=== PATIENT | male | born 1960 | race Caucasian/White ===

== ENCOUNTER 2018-10-06 14:36 | Inpatient (IN) | payer OTHER, MEDICAID ==
[~2018-10-06] VITALS: Ht 190.5 cm; Wt 74.4 kg
--- NOTE | 2018-10-06 15:04 | NUR ---
pt reynaldo hare from [facility]. pt dx with etoh w/ds, frequent falls, hypokalemia, hyponatremia, pancreatitis, pt a&ox4. pt very weak and shaking. pt stated he has not had a drink in 8 days. assessment completed. md at bedside. call light in reach. 2 side rails up.
[2018-10-06] MEDS ORDERED: SODIUM CHLORIDE 0.9% 1,000 ML IV ONE (15:13)
[2018-10-06] MEDS ORDERED: LORazepam 2 MG/ML, 1ML ONE (15:23)
[2018-10-06] MEDS ORDERED: SODIUM CHLORIDE FLUSH 10ML SYR IVF ONE (15:30)
[2018-10-06] MEDS ORDERED: MAGNESIUM SULFATE PMX 2GM/50ML 50 ML IV ONE (15:30)
[2018-10-06] MEDS ORDERED: LORazepam 2 MG/ML, 1ML IVPush ONE (15:30)
[2018-10-06] MEDS ORDERED: ONDANSETRON 2MG/ML, 2ML IV PRN (16:00)
[2018-10-06] MEDS ORDERED: LORazepam 2 MG/ML, 1ML IV PRN ×2 (16:00)
[2018-10-06] MEDS ORDERED: DOCUSATE 100 MG CAPSULE PO PRN (16:00)
[2018-10-06] MEDS ORDERED: CYCLOBENZAPRINE 10 MG TABLET PO PRN (16:00)
[2018-10-06] MEDS ORDERED: ALUMINUM/MAG/SIMETHICONE 30 ML UDC PO PRN (16:00)
[2018-10-06] MEDS ORDERED: ACETAMINOPHEN 325 MG TABLET PO PRN (16:00)
[2018-10-06] MEDS ORDERED: GABAPENTIN 300 MG CAPSULE PO PRN (16:00)
[2018-10-06] MEDS ORDERED: DIPHENHYDRAMINE 50 MG CAPSULE PO PRN (16:00)
[2018-10-06] MEDS ORDERED: THIAMINE 200 MG in DEXTROSE 5% 50 ML IVPB ONE (16:00)
[2018-10-06] MEDS ORDERED: OMEP-110 PO (16:08)
[2018-10-06] MEDS ORDERED: AMLO-150 PO (16:09)
[2018-10-06] MEDS ORDERED: METO25TA35 PO (16:09)
[2018-10-06] MEDS ORDERED: LORA-446 PO (16:10)
[2018-10-06] MEDS ORDERED: MULT-204 PO (16:10)
--- NOTE | 2018-10-06 16:12 | NUR ---
report called to monico carter.pt will be transferrd to floor.
[2018-10-06 16:40] LABS: BASOPHILS # (AUTO) 0.04 x10^3/uL (0-0.1); BASOPHILS % (AUTO) 0 % (0-1); EOSINOPHILS # (AUTO) 0.01 x10^3/uL (0-0.4); EOSINOPHILS % (AUTO) 0 % (1-7); LYMPHOCYTES # (AUTO) 1.05 x10^3/uL (1-3.4); LYMPHOCYTES % (AUTO) 10 % (22-44); MD NO; MEAN CORPUSCULAR HEMOGLOBIN 32.9 pg (27.5-34.5); MEAN CORPUSCULAR HGB CONC 32.8 g/dL (33.2-36.2); MEAN CORPUSCULAR VOLUME 100.3 fL (81-97); MEAN PLATELET VOLUME 7.8 fL (7.4-10.4); MONOCYTES # (AUTO) 0.79 x10^3/uL (0.2-0.8); MONOCYTES % (AUTO) 7 % (2-9); NEUTROPHILS # (AUTO) 8.84 x10^3/uL (1.8-6.8); NEUTROPHILS % (AUTO) 82 % (42-75); PLATELET COUNT 316 x10^3/uL (130-400); RED BLOOD COUNT 3.77 x10^6/uL (4.38-5.82); RED CELL DISTRIBUTION WIDTH 16.3 % (9.4-14.8)
[2018-10-06 16:46] VITALS: BP 119/79
[2018-10-06 16:54] LABS: ALANINE AMINOTRANSFERASE 60 U/L (12-78); ALBUMIN 2.2 g/dL (3.4-5.0); ANION GAP 12 mmol/L (5-15); CALCIUM 7.6 mg/dL (8.5-10.1); CHLORIDE 97 mmol/L (98-107); CREATININE 0.71 mg/dL (0.7-1.3)
[2018-10-06 16:56] LABS: ALKALINE PHOSPHATASE 232 U/L (45-117); BILIRUBIN,TOTAL 5.7 mg/dL (0.2-1.0); TOTAL PROTEIN 5.6 g/dL (6.4-8.2)
[2018-10-06] MEDS ORDERED: METOCLOPRAMIDE 10MG TABLET PO PRN (18:00)
[2018-10-06] MEDS: POTASSIUM CHLORIDE 20 MEQ, MVI ADULT 10 ML, FOLIC ACID 1 MG, MAGNESIUM SULFATE 1 GM in ... IV SCH (18:05)
[2018-10-06] MEDS: PIPERACILLIN/TAZO/PMX 4.5GM 100 ML IV SCH (18:05)
[2018-10-06] MEDS: LORazepam 2 MG/ML, 1ML IV PRN (19:15)
[2018-10-06 20:00] VITALS: BP 116/77
[2018-10-06] MEDS: ENOXAPARIN 40 MG/0.4 ML SQ SCH (21:00)
[2018-10-07] MEDS: PIPERACILLIN/TAZO/PMX 4.5GM 100 ML IV SCH ×3 (00:47→16:21)
[2018-10-07] MEDS: LORazepam 2 MG/ML, 1ML IV PRN ×8 (01:14→22:01)
[2018-10-07 01:21] VITALS: BP 123/82
[2018-10-07] MEDS: POTASSIUM CHLORIDE 20 MEQ, MVI ADULT 10 ML, FOLIC ACID 1 MG, MAGNESIUM SULFATE 1 GM in ... IV SCH ×2 (03:16→17:55)
[2018-10-07 07:04] LABS: ALANINE AMINOTRANSFERASE 54 U/L (12-78); ANION GAP 10 mmol/L (5-15); CHLORIDE 102 mmol/L (98-107); CREATININE 0.66 mg/dL (0.7-1.3)
[2018-10-07 07:09] LABS: ALKALINE PHOSPHATASE 206 U/L (45-117); BILIRUBIN,TOTAL 5.2 mg/dL (0.2-1.0); CALCIUM 7.6 mg/dL (8.5-10.1); TOTAL PROTEIN 5.3 g/dL (6.4-8.2)
[2018-10-07 07:34] LABS: INTERNATIONAL NORMALIZED RATIO 1.62 (0.93-1.1); PROTHROMBIN TIME 16.7 Seconds (9.6-11.5)
[2018-10-07] MEDS ORDERED: LIDOCAINE-MPF 1%, 5ML ONE (07:54)
[2018-10-07 08:33] VITALS: BP 127/78
[2018-10-07] MEDS ORDERED: POTASSIUM PHOSPHATE 44 MEQ in SODIUM CHLORIDE 0.9% 500 ML IV ONE (09:00)
[2018-10-07] MEDS ORDERED: POTASSIUM CHLORIDE 20 MEQ TAB.ER.PRT PO ONE (09:00)
[2018-10-07] MEDS: MULTIVITAMINS/MINERALS TABLET PO SCH (09:04)
[2018-10-07 14:28] VITALS: BP 129/82
[2018-10-07 15:21] LABS: CLOSTRIDIUM DIFFICILE ANTIGEN POSITIVE; CLOSTRIDIUM DIFFICILE TOXIN NEGATIVE (Negative)
[2018-10-07] MEDS: ENOXAPARIN 40 MG/0.4 ML SQ SCH (17:43)
[2018-10-07 19:47] VITALS: BP 115/78
[2018-10-08] MEDS: PIPERACILLIN/TAZO/PMX 4.5GM 100 ML IV SCH ×3 (00:43→17:32)
[2018-10-08] MEDS: LORazepam 2 MG/ML, 1ML IV PRN ×6 (01:13→13:10)
[2018-10-08] MEDS: POTASSIUM CHLORIDE 20 MEQ, MVI ADULT 10 ML, FOLIC ACID 1 MG, MAGNESIUM SULFATE 1 GM in ... IV SCH ×2 (01:35→14:17)
[2018-10-08 02:14] VITALS: BP 131/90
[2018-10-08 07:11] VITALS: BP 104/60
[2018-10-08 07:27] LABS: BASOPHILS # (AUTO) 0.05 x10^3/uL (0-0.1); BASOPHILS % (AUTO) 1 % (0-1); EOSINOPHILS # (AUTO) 0.09 x10^3/uL (0-0.4); EOSINOPHILS % (AUTO) 1 % (1-7); LYMPHOCYTES # (AUTO) 1.09 x10^3/uL (1-3.4); LYMPHOCYTES % (AUTO) 12 % (22-44); MD NO; MEAN CORPUSCULAR HEMOGLOBIN 33.4 pg (27.5-34.5); MEAN CORPUSCULAR HGB CONC 32.8 g/dL (33.2-36.2); MEAN CORPUSCULAR VOLUME 101.8 fL (81-97); MEAN PLATELET VOLUME 7.7 fL (7.4-10.4); MONOCYTES # (AUTO) 0.67 x10^3/uL (0.2-0.8); MONOCYTES % (AUTO) 8 % (2-9); NEUTROPHILS # (AUTO) 7.02 x10^3/uL (1.8-6.8); NEUTROPHILS % (AUTO) 79 % (42-75); PLATELET COUNT 277 x10^3/uL (130-400); RED BLOOD COUNT 3.56 x10^6/uL (4.38-5.82); RED CELL DISTRIBUTION WIDTH 16.1 % (9.4-14.8)
[2018-10-08 07:46] LABS: ANION GAP 8 mmol/L (5-15); CALCIUM 7.6 mg/dL (8.5-10.1); CHLORIDE 110 mmol/L (98-107)
[2018-10-08 07:49] LABS: ALANINE AMINOTRANSFERASE 56 U/L (12-78); ALKALINE PHOSPHATASE 201 U/L (45-117); BILIRUBIN,TOTAL 4.2 mg/dL (0.2-1.0); CREATININE 0.48 mg/dL (0.7-1.3); TOTAL PROTEIN 5.1 g/dL (6.4-8.2)
[2018-10-08 07:59] LABS: INTERNATIONAL NORMALIZED RATIO 1.34 (0.93-1.1); PROTHROMBIN TIME 13.9 Seconds (9.6-11.5)
[2018-10-08] MEDS: LACTULOSE 20 GM/30 ML UDC PO SCH ×2 (09:00→21:32)
[2018-10-08] MEDS: MULTIVITAMINS/MINERALS TABLET PO SCH (09:00)
[2018-10-08] MEDS ORDERED: THIAMINE 100 MG in DEXTROSE 5% 50 ML IVPB SCH (09:00)
[2018-10-08] MEDS: NEUTRA PHOS K 250 MG TABLET PO SCH ×3 (09:00→21:32)
[2018-10-08] MEDS ORDERED: PHARMACY INSTRUCTION MC PRN ×4 (14:30)
[2018-10-08] MEDS ORDERED: PHENOBARBITAL SODIUM IVPB ONE (15:00)
[2018-10-08] MEDS ORDERED: SODIUM CHLORIDE 0.9% IVPB ONE (15:00)
[2018-10-08 17:29] LABS: MICROSCOPIC INDICATED
[2018-10-08] MEDS ORDERED: SODIUM CHLORIDE 0.9% 1,000ML IVBOLUS ONE (17:30)
[2018-10-08 17:35] LABS: CULTURE INDICATED? YES
[2018-10-08] MEDS: VANCOMYCIN 50 MG/ML ORAL SUSP NG SCH (19:56)
[2018-10-08] MEDS: METRONIDAZOLE PMX 500MG/100ML 100 ML IV SCH (19:58)
[2018-10-08] MEDS: SODIUM CHLORIDE 0.9% 1,000 ML IV SCH (20:07)
[2018-10-08] MEDS: ENOXAPARIN 40 MG/0.4 ML SQ SCH (21:33)
[2018-10-09] MEDS: VANCOMYCIN 50 MG/ML ORAL SUSP NG SCH ×4 (01:49→21:02)
[2018-10-09] MEDS: METRONIDAZOLE PMX 500MG/100ML 100 ML IV SCH (03:26)
[2018-10-09] MEDS: SODIUM CHLORIDE 0.9% 1,000 ML IV SCH (03:26)
[2018-10-09 04:03] LABS: BASOPHILS # (AUTO) 0.02 x10^3/uL (0-0.1); BASOPHILS % (AUTO) 0 % (0-1); EOSINOPHILS # (AUTO) 0.08 x10^3/uL (0-0.4); EOSINOPHILS % (AUTO) 1 % (1-7); LYMPHOCYTES # (AUTO) 0.91 x10^3/uL (1-3.4); LYMPHOCYTES % (AUTO) 10 % (22-44); MD NO; MEAN CORPUSCULAR HEMOGLOBIN 33.8 pg (27.5-34.5); MEAN CORPUSCULAR HGB CONC 32.9 g/dL (33.2-36.2); MEAN CORPUSCULAR VOLUME 102.8 fL (81-97); MEAN PLATELET VOLUME 7.7 fL (7.4-10.4); MONOCYTES % (AUTO) 5 % (2-9); NEUTROPHILS # (AUTO) 7.75 x10^3/uL (1.8-6.8); NEUTROPHILS % (AUTO) 84 % (42-75); PLATELET COUNT 259 x10^3/uL (130-400); RED BLOOD COUNT 3.71 x10^6/uL (4.38-5.82); RED CELL DISTRIBUTION WIDTH 16.8 % (9.4-14.8)
[2018-10-09 04:16] LABS: ALANINE AMINOTRANSFERASE 54 U/L (12-78); ALBUMIN 1.9 g/dL (3.4-5.0); ANION GAP 10 mmol/L (5-15); CALCIUM 7.6 mg/dL (8.5-10.1); CHLORIDE 115 mmol/L (98-107); CHOLESTEROL, TOTAL 55 mg/dL (140-239); CREATININE 0.43 mg/dL (0.7-1.3)
[2018-10-09 04:24] LABS: ALKALINE PHOSPHATASE 196 U/L (45-117); CHOL/HDL RATIO 4.2; HDL CHOL % 24 % (26-37); HDL CHOLESTEROL (DIRECT) 13 mg/dL (40-60); LDL CHOLESTEROL,CALCULATED 30 mg/dL (54-169); LDL/HDL RATIO 2.3 (0.5-3.0); TOTAL PROTEIN 5.1 g/dL (6.4-8.2); TRIGLYCERIDES 59 mg/dL (50-200); VLDL CHOLESTEROL 12 mg/dL (0-25)
[2018-10-09] MEDS: PHENOBARBITAL SODIUM 65 MG/ML, 1ML IM SCH ×2 (07:27→18:42)
[2018-10-09] MEDS: NEUTRA PHOS K 250 MG TABLET PO SCH ×2 (09:01→14:53)
[2018-10-09] MEDS: RIFAXIMIN 550 MG TABLET PO SCH ×2 (09:01→20:52)
[2018-10-09] MEDS: THIAMINE 200 MG in DEXTROSE 5% 50 ML IVPB SCH (09:01)
[2018-10-09] MEDS: SODIUM CHLORIDE 0.45% 1,000 ML IV SCH ×2 (09:02→20:47)
[2018-10-09] MEDS ORDERED: PHENOBARBITAL SODIUM 260 MG in SODIUM CHLORIDE 0.9% 50 ML IVPB ONE (13:00)
[2018-10-09] MEDS ORDERED: ZIPRASIDONE 20 MG INJ IM ONE (15:00)
[2018-10-09] MEDS: ENOXAPARIN 40 MG/0.4 ML SQ SCH (20:53)
[2018-10-10] MEDS: VANCOMYCIN 50 MG/ML ORAL SUSP NG SCH ×4 (03:25→21:27)
[2018-10-10 04:00] VITALS: BP 134/92
[2018-10-10 04:33] LABS: BASOPHILS # (AUTO) 0.03 x10^3/uL (0-0.1); BASOPHILS % (AUTO) 0 % (0-1); EOSINOPHILS # (AUTO) 0.36 x10^3/uL (0-0.4); EOSINOPHILS % (AUTO) 3 % (1-7); LYMPHOCYTES # (AUTO) 1.49 x10^3/uL (1-3.4); LYMPHOCYTES % (AUTO) 12 % (22-44); MD NO; MEAN CORPUSCULAR HEMOGLOBIN 33.7 pg (27.5-34.5); MEAN CORPUSCULAR HGB CONC 32.5 g/dL (33.2-36.2); MEAN CORPUSCULAR VOLUME 103.7 fL (81-97); MEAN PLATELET VOLUME 7.7 fL (7.4-10.4); MONOCYTES # (AUTO) 0.84 x10^3/uL (0.2-0.8); MONOCYTES % (AUTO) 7 % (2-9); NEUTROPHILS # (AUTO) 10.03 x10^3/uL (1.8-6.8); NEUTROPHILS % (AUTO) 79 % (42-75); PLATELET COUNT 272 x10^3/uL (130-400); RED BLOOD COUNT 3.75 x10^6/uL (4.38-5.82); RED CELL DISTRIBUTION WIDTH 17.2 % (9.4-14.8)
[2018-10-10 04:43] LABS: ALBUMIN 1.9 g/dL (3.4-5.0); ANION GAP 8 mmol/L (5-15); CALCIUM 8.3 mg/dL (8.5-10.1); CHLORIDE 117 mmol/L (98-107)
[2018-10-10 04:48] LABS: ALANINE AMINOTRANSFERASE 54 U/L (12-78); ALKALINE PHOSPHATASE 211 U/L (45-117); BILIRUBIN,TOTAL 2.7 mg/dL (0.2-1.0); CREATININE 0.64 mg/dL (0.7-1.3); TOTAL PROTEIN 5.4 g/dL (6.4-8.2)
[2018-10-10] MEDS: PHENOBARBITAL SODIUM 65 MG/ML, 1ML IM SCH (05:53)
[2018-10-10] MEDS ORDERED: POTASSIUM PHOSPHATE 44 MEQ in SODIUM CHLORIDE 0.9% 500 ML IV ONE (07:00)
[2018-10-10] MEDS ORDERED: ROCURONIUM 10MG/ML,5ML ONE (07:37)
[2018-10-10] MEDS ORDERED: ETOMIDATE 20 MG/10 ML ONE (07:37)
[2018-10-10] MEDS ORDERED: PROPOFOL 10 MG/ML, 100ML IV ONE (07:37)
[2018-10-10] MEDS: THIAMINE 200 MG in DEXTROSE 5% 50 ML IVPB SCH (09:19)
[2018-10-10] MEDS: RIFAXIMIN 550 MG TABLET PO SCH ×2 (09:19→21:27)
[2018-10-10] MEDS: SODIUM CHLORIDE 0.45% 1,000 ML IV SCH ×2 (09:20→23:43)
[2018-10-10] MEDS ORDERED: NOREPINEPHRINE 4 MG in SODIUM CHLORIDE 0.9% 246 ML IV PRN (16:32)
[2018-10-10] MEDS ORDERED: DEXTROSE 50%, 50ML SYRINGE IVPush PRN (17:00)
[2018-10-10] MEDS ORDERED: BISACODYL 10 MG SUPP PR PRN (17:00)
[2018-10-10] MEDS ORDERED: DEXTROSE 4 GM TAB.CHEW PO PRN (17:00)
[2018-10-10] MEDS ORDERED: SENNA 176 MG/5 ML ORAL SOL NG PRN (17:00)
[2018-10-10] MEDS ORDERED: LACTULOSE 20 GM/30 ML UDC NG PRN (17:00)
[2018-10-10] MEDS ORDERED: SENNA/DOCUSATE TABLET NG PRN (17:00)
[2018-10-10] MEDS ORDERED: PIPERACILLIN/TAZO/PMX 3.375GM 50 ML IV SCH (17:00)
[2018-10-10] MEDS ORDERED: PHARMACY MAY ADJ FOR RENAL FX MC SCH (17:00)
[2018-10-10] MEDS ORDERED: LIDOCAINE-MPF 1%, 2ML ENDO PRN (17:00)
[2018-10-10] MEDS ORDERED: GLUCAGON 1 MG IM PRN (17:00)
[2018-10-10 18:00] LABS: INTERNATIONAL NORMALIZED RATIO 1.29 (0.93-1.1); PROTHROMBIN TIME 13.4 Seconds (9.6-11.5)
[2018-10-10] MEDS: ALBUTEROL/IPRATROPIUM 2.5MG/0.5MG, 3 ML INLINE SCH ×3 (18:00→22:31)
[2018-10-10 18:06] LABS: ANION GAP 8 mmol/L (5-15); CALCIUM 8.4 mg/dL (8.5-10.1); CHLORIDE 118 mmol/L (98-107); CREATININE 0.58 mg/dL (0.7-1.3); TRIGLYCERIDES 74 mg/dL (50-200); TROPONIN I < 0.015 ng/mL (0.000-0.045)
[2018-10-10 18:17] LABS: MEAN CORPUSCULAR HEMOGLOBIN 33.9 pg (27.5-34.5); MEAN CORPUSCULAR HGB CONC 32.4 g/dL (33.2-36.2); MEAN CORPUSCULAR VOLUME 104.5 fL (81-97); PLATELET COUNT 322 x10^3/uL (130-400); RED BLOOD COUNT 4.14 x10^6/uL (4.38-5.82); RED CELL DISTRIBUTION WIDTH 17.3 % (9.4-14.8)
[2018-10-10] MEDS ORDERED: FENTANYL PF 2,500 MCG in SODIUM CHLORIDE 0.9% 200 ML IV PRN (18:30)
[2018-10-10] MEDS: MEROPENEM 1 GM in SODIUM CHLORIDE 0.9% 100 ML IV SCH (18:34)
[2018-10-10] MEDS ORDERED: DIAZEPAM 5 MG/ML, 2ML IV ONE (21:00)
[2018-10-10] MEDS: INSULIN LISPRO 100 UNITS/ML, PEN SQ-INSULIN SCH (21:00)
[2018-10-10] MEDS: ENOXAPARIN 40 MG/0.4 ML SQ SCH (21:27)
[2018-10-10] MEDS: SODIUM CHLORIDE FLUSH 10ML SYR IVF SCH (21:28)
[2018-10-10] MEDS: PROPOFOL 100 ML IV PRN (21:32)
[2018-10-10 23:00] LABS: MEAN CORPUSCULAR HEMOGLOBIN 33.5 pg (27.5-34.5); MEAN CORPUSCULAR HGB CONC 32.6 g/dL (33.2-36.2); MEAN CORPUSCULAR VOLUME 102.6 fL (81-97); MEAN PLATELET VOLUME 7.9 fL (7.4-10.4); PLATELET COUNT 310 x10^3/uL (130-400); RED BLOOD COUNT 4.14 x10^6/uL (4.38-5.82); RED CELL DISTRIBUTION WIDTH 17.4 % (9.4-14.8)
[2018-10-10] MEDS: FENTANYL PF 100 MCG/2ML IVPush PRN ×2 (23:15→23:43)
[2018-10-10 23:17] LABS: TROPONIN I < 0.015 ng/mL (0.000-0.045)
[2018-10-11] MEDS ORDERED: ALBUMIN HUMAN 25% 100 ML IV ONE (01:00)
[2018-10-11] MEDS ORDERED: ALBUMIN HUMAN 25% 50 ML IV ONE (01:30)
[2018-10-11] MEDS: ALBUTEROL/IPRATROPIUM 2.5MG/0.5MG, 3 ML INLINE SCH ×6 (02:21→22:17)
[2018-10-11] MEDS: VANCOMYCIN 50 MG/ML ORAL SUSP NG SCH ×4 (03:16→21:37)
[2018-10-11 04:40] LABS: MEAN CORPUSCULAR HEMOGLOBIN 33.9 pg (27.5-34.5); MEAN CORPUSCULAR HGB CONC 32.6 g/dL (33.2-36.2); MEAN CORPUSCULAR VOLUME 103.8 fL (81-97); MEAN PLATELET VOLUME 8.2 fL (7.4-10.4); PLATELET COUNT 236 x10^3/uL (130-400); RED BLOOD COUNT 3.64 x10^6/uL (4.38-5.82); RED CELL DISTRIBUTION WIDTH 17.4 % (9.4-14.8)
[2018-10-11 04:49] LABS: ALANINE AMINOTRANSFERASE 47 U/L (12-78); ANION GAP 8 mmol/L (5-15); CHLORIDE 117 mmol/L (98-107)
[2018-10-11 04:51] LABS: ALKALINE PHOSPHATASE 170 U/L (45-117); BILIRUBIN,TOTAL 2.6 mg/dL (0.2-1.0); CREATININE 0.99 mg/dL (0.7-1.3); TOTAL PROTEIN 5.1 g/dL (6.4-8.2)
[2018-10-11 05:00] VITALS: BP 93/66
[2018-10-11] MEDS: PROPOFOL 100 ML IV PRN ×4 (05:04→23:29)
[2018-10-11 05:44] LABS: BASOPHILS # (AUTO) 0.02 x10^3/uL (0-0.1); BASOPHILS % (AUTO) 0 % (0-1); EOSINOPHILS # (AUTO) 0.05 x10^3/uL (0-0.4); EOSINOPHILS % (AUTO) 0 % (1-7); LYMPHOCYTES # (AUTO) 1.78 x10^3/uL (1-3.4); LYMPHOCYTES % (AUTO) 10 % (22-44); MD SCAN; MONOCYTES # (AUTO) 0.88 x10^3/uL (0.2-0.8); MONOCYTES % (AUTO) 5 % (2-9); NEUTROPHILS # (AUTO) 14.67 x10^3/uL (1.8-6.8); NEUTROPHILS % (AUTO) 84 % (42-75)
[2018-10-11] MEDS ORDERED: PHENOBARBITAL SODIUM 65 MG/ML, 1ML IM SCH (06:30)
[2018-10-11] MEDS: MEROPENEM 1 GM in SODIUM CHLORIDE 0.9% 100 ML IV SCH (06:33)
[2018-10-11] MEDS ORDERED: MAGNESIUM SULFATE PMX 2GM/50ML 50 ML IV ONE (07:00)
[2018-10-11] MEDS: INSULIN LISPRO 100 UNITS/ML, PEN SQ-INSULIN SCH ×4 (07:00→21:38)
[2018-10-11] MEDS ORDERED: SODIUM CHLORIDE 0.9%, 500ML IVBOLUS ONE ×2 (07:30→14:30)
[2018-10-11] MEDS: THIAMINE 200 MG in DEXTROSE 5% 50 ML IVPB SCH ×2 (09:00→09:18)
[2018-10-11] MEDS: RIFAXIMIN 550 MG TABLET PO SCH ×2 (09:17→21:38)
[2018-10-11] MEDS: SODIUM CHLORIDE FLUSH 10ML SYR IVF SCH ×2 (09:20→21:37)
[2018-10-11 10:27] LABS: MEAN CORPUSCULAR HEMOGLOBIN 34.1 pg (27.5-34.5); MEAN CORPUSCULAR HGB CONC 32.9 g/dL (33.2-36.2); MEAN CORPUSCULAR VOLUME 103.4 fL (81-97); MEAN PLATELET VOLUME 8.1 fL (7.4-10.4); PLATELET COUNT 254 x10^3/uL (130-400); RED BLOOD COUNT 3.58 x10^6/uL (4.38-5.82); RED CELL DISTRIBUTION WIDTH 17.1 % (9.4-14.8)
[2018-10-11] MEDS: PIPERACILLIN/TAZO/PMX 3.375GM 50 ML IV SCH ×3 (11:46→21:38)
[2018-10-11] MEDS: SODIUM CHLORIDE 0.45% 1,000 ML IV SCH (15:50)
[2018-10-11] MEDS: ENOXAPARIN 40 MG/0.4 ML SQ SCH (21:38)
[2018-10-11 22:24] LABS: MEAN CORPUSCULAR HEMOGLOBIN 33.6 pg (27.5-34.5); MEAN CORPUSCULAR HGB CONC 32.3 g/dL (33.2-36.2); MEAN CORPUSCULAR VOLUME 104.1 fL (81-97); MEAN PLATELET VOLUME 8.1 fL (7.4-10.4); PLATELET COUNT 212 x10^3/uL (130-400); RED BLOOD COUNT 3.44 x10^6/uL (4.38-5.82); RED CELL DISTRIBUTION WIDTH 17.5 % (9.4-14.8)
[2018-10-12] MEDS: ALBUTEROL/IPRATROPIUM 2.5MG/0.5MG, 3 ML INLINE SCH ×6 (02:19→22:53)
[2018-10-12] MEDS: PIPERACILLIN/TAZO/PMX 3.375GM 50 ML IV SCH ×4 (03:36→21:33)
[2018-10-12] MEDS: VANCOMYCIN 50 MG/ML ORAL SUSP NG SCH ×4 (03:36→21:00)
[2018-10-12] MEDS: INSULIN LISPRO 100 UNITS/ML, PEN SQ-INSULIN SCH ×3 (04:00→18:00)
[2018-10-12 04:31] LABS: MEAN CORPUSCULAR HEMOGLOBIN 33.6 pg (27.5-34.5); MEAN CORPUSCULAR HGB CONC 32.4 g/dL (33.2-36.2); MEAN CORPUSCULAR VOLUME 103.8 fL (81-97); MEAN PLATELET VOLUME 8.6 fL (7.4-10.4); PLATELET COUNT 197 x10^3/uL (130-400); RED BLOOD COUNT 3.33 x10^6/uL (4.38-5.82); RED CELL DISTRIBUTION WIDTH 16.9 % (9.4-14.8)
[2018-10-12 04:37] LABS: ANION GAP 7 mmol/L (5-15); CALCIUM 7.8 mg/dL (8.5-10.1); CHLORIDE 116 mmol/L (98-107); CREATININE 0.99 mg/dL (0.7-1.3)
[2018-10-12 05:03] VITALS: BP 99/66
[2018-10-12] MEDS: SODIUM CHLORIDE 0.45% 1,000 ML IV SCH ×2 (05:37→15:30)
[2018-10-12 05:43] LABS: BASOPHILS # (AUTO) 0.18 x10^3/uL (0-0.1); BASOPHILS % (AUTO) 1 % (0-1); EOSINOPHILS # (AUTO) 0.39 x10^3/uL (0-0.4); EOSINOPHILS % (AUTO) 3 % (1-7); LYMPHOCYTES # (AUTO) 1.67 x10^3/uL (1-3.4); LYMPHOCYTES % (AUTO) 11 % (22-44); MD SCAN; MONOCYTES # (AUTO) 1.21 x10^3/uL (0.2-0.8); MONOCYTES % (AUTO) 8 % (2-9); NEUTROPHILS # (AUTO) 11.38 x10^3/uL (1.8-6.8); NEUTROPHILS % (AUTO) 77 % (42-75)
[2018-10-12] MEDS: RIFAXIMIN 550 MG TABLET PO SCH ×2 (08:56→21:00)
[2018-10-12] MEDS: THIAMINE 200 MG in DEXTROSE 5% 50 ML IVPB SCH (08:56)
--- NOTE | 2018-10-12 10:38 | NUR ---
10/12 TF GOAL: VITAL AF 1.2 @ 80ML/HR via postpyloric dobhoff
[2018-10-12] MEDS: SODIUM CHLORIDE FLUSH 10ML SYR IVF SCH ×2 (11:46→21:00)
[2018-10-12] MEDS: METOCLOPRAMIDE 5 MG/ML, 2ML IVPush SCH ×2 (12:00→18:52)
[2018-10-12] MEDS: ENOXAPARIN 40 MG/0.4 ML SQ SCH (21:33)
[2018-10-13] MEDS: ALBUTEROL/IPRATROPIUM 2.5MG/0.5MG, 3 ML INLINE SCH ×3 (02:25→11:00)
[2018-10-13] MEDS: PIPERACILLIN/TAZO/PMX 3.375GM 50 ML IV SCH ×4 (03:38→20:49)
[2018-10-13] MEDS: VANCOMYCIN 50 MG/ML ORAL SUSP NG SCH ×4 (03:58→19:59)
[2018-10-13] MEDS: SODIUM CHLORIDE 0.45% 1,000 ML IV SCH ×2 (03:59→17:16)
[2018-10-13 04:00] VITALS: BP 108/72
[2018-10-13 05:06] LABS: ANION GAP 8 mmol/L (5-15); CHLORIDE 113 mmol/L (98-107); TRIGLYCERIDES 93 mg/dL (50-200)
[2018-10-13] MEDS: METOCLOPRAMIDE 5 MG/ML, 2ML IVPush SCH ×5 (05:19→23:48)
[2018-10-13] MEDS: INSULIN LISPRO 100 UNITS/ML, PEN SQ-INSULIN SCH ×5 (05:19→23:48)
[2018-10-13 05:42] LABS: MEAN CORPUSCULAR HEMOGLOBIN 33.1 pg (27.5-34.5); MEAN CORPUSCULAR VOLUME 103.4 fL (81-97); MEAN PLATELET VOLUME 8.5 fL (7.4-10.4); PLATELET COUNT 176 x10^3/uL (130-400); RED BLOOD COUNT 3.32 x10^6/uL (4.38-5.82); RED CELL DISTRIBUTION WIDTH 16.5 % (9.4-14.8)
[2018-10-13 05:43] LABS: BASOPHILS # (AUTO) 0.03 x10^3/uL (0-0.1); BASOPHILS % (AUTO) 0 % (0-1); EOSINOPHILS # (AUTO) 0.18 x10^3/uL (0-0.4); EOSINOPHILS % (AUTO) 2 % (1-7); LYMPHOCYTES # (AUTO) 1.21 x10^3/uL (1-3.4); LYMPHOCYTES % (AUTO) 11 % (22-44); MD SCAN; MONOCYTES # (AUTO) 0.94 x10^3/uL (0.2-0.8); MONOCYTES % (AUTO) 9 % (2-9); NEUTROPHILS # (AUTO) 8.44 x10^3/uL (1.8-6.8); NEUTROPHILS % (AUTO) 78 % (42-75)
[2018-10-13] MEDS ORDERED: PHENOBARBITAL 20 MG/5 ML ORAL SOL PO SCH (06:30)
[2018-10-13] MEDS: FAMOTIDINE 20 MG/2 ML IVPush SCH ×2 (09:12→19:59)
[2018-10-13] MEDS: THIAMINE 200 MG in DEXTROSE 5% 50 ML IVPB SCH (09:12)
[2018-10-13] MEDS: SODIUM CHLORIDE FLUSH 10ML SYR IVF SCH ×2 (09:12→19:59)
[2018-10-13] MEDS: RIFAXIMIN 550 MG TABLET PO SCH ×2 (09:13→19:59)
[2018-10-13] MEDS ORDERED: LIDOCAINE 2%, 6 ML JEL.PF.APP MM ONE (14:35)
[2018-10-13] MEDS: ENOXAPARIN 40 MG/0.4 ML SQ SCH (19:59)
[2018-10-13] MEDS: ALBUTEROL/IPRATROPIUM 2.5MG/0.5MG, 3 ML NPPB SCH (20:24)
[2018-10-14] MEDS: SODIUM CHLORIDE 0.45% 1,000 ML IV SCH ×3 (02:00→14:40)
[2018-10-14] MEDS: VANCOMYCIN 50 MG/ML ORAL SUSP NG SCH ×4 (02:45→20:33)
[2018-10-14] MEDS: PIPERACILLIN/TAZO/PMX 3.375GM 50 ML IV SCH ×4 (03:42→22:08)
[2018-10-14 04:48] LABS: MEAN CORPUSCULAR HEMOGLOBIN 33.8 pg (27.5-34.5); MEAN CORPUSCULAR HGB CONC 32.8 g/dL (33.2-36.2); MEAN CORPUSCULAR VOLUME 103.2 fL (81-97); MEAN PLATELET VOLUME 8.6 fL (7.4-10.4); PLATELET COUNT 237 x10^3/uL (130-400); RED BLOOD COUNT 3.45 x10^6/uL (4.38-5.82); RED CELL DISTRIBUTION WIDTH 15.9 % (9.4-14.8)
[2018-10-14 04:53] LABS: ANION GAP 12 mmol/L (5-15); CHLORIDE 111 mmol/L (98-107); CREATININE 0.53 mg/dL (0.7-1.3)
[2018-10-14 05:41] LABS: BASOPHILS # (AUTO) 0.03 x10^3/uL (0-0.1); BASOPHILS % (AUTO) 0 % (0-1); EOSINOPHILS # (AUTO) 0.05 x10^3/uL (0-0.4); EOSINOPHILS % (AUTO) 1 % (1-7); LYMPHOCYTES # (AUTO) 0.92 x10^3/uL (1-3.4); LYMPHOCYTES % (AUTO) 8 % (22-44); MD SCAN; MONOCYTES # (AUTO) 1.04 x10^3/uL (0.2-0.8); MONOCYTES % (AUTO) 9 % (2-9); NEUTROPHILS # (AUTO) 9.02 x10^3/uL (1.8-6.8); NEUTROPHILS % (AUTO) 82 % (42-75)
[2018-10-14 05:51] VITALS: BP 134/82
[2018-10-14] MEDS: INSULIN LISPRO 100 UNITS/ML, PEN SQ-INSULIN SCH ×2 (06:00→12:00)
[2018-10-14] MEDS: METOCLOPRAMIDE 5 MG/ML, 2ML IVPush SCH ×3 (06:16→18:14)
[2018-10-14] MEDS ORDERED: PHENOBARBITAL 20 MG/5 ML ORAL SOL PO SCH (06:30)
[2018-10-14] MEDS: ALBUTEROL/IPRATROPIUM 2.5MG/0.5MG, 3 ML NPPB SCH (07:02)
[2018-10-14] MEDS ORDERED: ALBUTEROL/IPRATROPIUM 2.5MG/0.5MG, 3 ML NPPB PRN (07:30)
[2018-10-14] MEDS: FAMOTIDINE 20 MG/2 ML IVPush SCH ×2 (08:36→20:33)
[2018-10-14] MEDS: SODIUM CHLORIDE FLUSH 10ML SYR IVF SCH ×2 (08:36→20:33)
[2018-10-14] MEDS: RIFAXIMIN 550 MG TABLET PO SCH ×2 (08:36→20:34)
[2018-10-14] MEDS: THIAMINE 200 MG in DEXTROSE 5% 50 ML IVPB SCH (08:47)
[2018-10-14] MEDS ORDERED: ZIPRASIDONE 20 MG INJ IM ONE ×2 (09:37→16:00)
[2018-10-14] MEDS: ENOXAPARIN 40 MG/0.4 ML SQ SCH (20:34)
[2018-10-14] MEDS ORDERED: QUETIAPINE 25MG TABLET PO SCH ×2 (21:00)
[2018-10-15] MEDS: SODIUM CHLORIDE 0.45% 1,000 ML IV SCH ×3 (00:17→18:28)
[2018-10-15] MEDS: METOCLOPRAMIDE 5 MG/ML, 2ML IVPush SCH ×5 (00:19→21:30)
[2018-10-15] MEDS: VANCOMYCIN 50 MG/ML ORAL SUSP NG SCH ×3 (02:25→18:28)
[2018-10-15] MEDS: PIPERACILLIN/TAZO/PMX 3.375GM 50 ML IV SCH ×4 (03:44→21:55)
[2018-10-15 05:56] LABS: MEAN CORPUSCULAR HEMOGLOBIN 33.5 pg (27.5-34.5); MEAN CORPUSCULAR HGB CONC 32.6 g/dL (33.2-36.2); MEAN PLATELET VOLUME 8.9 fL (7.4-10.4); PLATELET COUNT 188 x10^3/uL (130-400); RED BLOOD COUNT 4.03 x10^6/uL (4.38-5.82); RED CELL DISTRIBUTION WIDTH 16.3 % (9.4-14.8)
[2018-10-15 06:10] LABS: CHLORIDE 112 mmol/L (98-107)
[2018-10-15 06:11] VITALS: BP 122/80
[2018-10-15 06:11] LABS: MD YES
[2018-10-15 06:13] LABS: BAND#(MANUAL) 0.53 x10^3/uL; BANDS%(MANUAL) 4 % (0-7); BASOS#(MANUAL) 0.13 x10^3/uL (0-0.1); BASOS% (MANUAL) 1 % (0-1); EOS#(MANUAL) 0.26 x10^3/uL (0.0-0.4); EOS% (MANUAL) 2 % (1-7); LYMPH#(MANUAL) 0.66 x10^3/uL (1-3.4); LYMPHS% (MANUAL) 5 % (22-44); MONOS#(MANUAL) 0.79 x10^3/uL (0.3-2.7); MONOS% (MANUAL) 6 % (2-9); SEG#(MANUAL) 10.82 x10^3/uL (1.8-6.8); SEGS% (MANUAL) 82 % (42-75)
[2018-10-15 06:15] LABS: <PLATELET ESTIMATE> ADEQUATE; <PLT MORPHOLOGY> NORMAL PLT MORPH; ANION GAP 10 mmol/L (5-15); CALCIUM 8.1 mg/dL (8.5-10.1); CREATININE 0.63 mg/dL (0.7-1.3)
[2018-10-15 06:16] LABS: <RBC MORPHOLOGY> NORMAL
[2018-10-15] MEDS: FAMOTIDINE 20 MG/2 ML IVPush SCH ×2 (09:30→21:41)
[2018-10-15] MEDS: SODIUM CHLORIDE FLUSH 10ML SYR IVF SCH ×2 (09:33→21:41)
[2018-10-15] MEDS ORDERED: BENZOCAINE 20% SPRAY 0.5ML ONE (09:34)
[2018-10-15] MEDS: RIFAXIMIN 550 MG TABLET PO SCH ×2 (12:01→21:40)
[2018-10-15] MEDS: OCTREOTIDE 500 MCG/ML, 1ML (0.5MG/ML) SQ SCH (21:30)
[2018-10-15] MEDS: ENOXAPARIN 40 MG/0.4 ML SQ SCH (21:30)
[2018-10-16] MEDS: VANCOMYCIN 50 MG/ML ORAL SUSP NG SCH ×5 (00:39→23:49)
[2018-10-16] MEDS: SODIUM CHLORIDE 0.45% 1,000 ML IV SCH (02:22)
[2018-10-16] MEDS: METOCLOPRAMIDE 5 MG/ML, 2ML IVPush SCH ×4 (04:03→21:06)
[2018-10-16] MEDS: PIPERACILLIN/TAZO/PMX 3.375GM 50 ML IV SCH (04:03)
[2018-10-16 04:21] LABS: ANION GAP 7 mmol/L (5-15); CALCIUM 7.7 mg/dL (8.5-10.1); CHLORIDE 107 mmol/L (98-107)
[2018-10-16 04:24] LABS: CREATININE 0.53 mg/dL (0.7-1.3); TRIGLYCERIDES 82 mg/dL (50-200)
[2018-10-16 04:26] LABS: BASOPHILS # (AUTO) 0.04 x10^3/uL (0-0.1); BASOPHILS % (AUTO) 0 % (0-1); EOSINOPHILS # (AUTO) 0.13 x10^3/uL (0-0.4); EOSINOPHILS % (AUTO) 1 % (1-7); LYMPHOCYTES # (AUTO) 1.55 x10^3/uL (1-3.4); LYMPHOCYTES % (AUTO) 13 % (22-44); MD NO; MEAN CORPUSCULAR HEMOGLOBIN 33.6 pg (27.5-34.5); MEAN CORPUSCULAR HGB CONC 32.9 g/dL (33.2-36.2); MEAN CORPUSCULAR VOLUME 102.1 fL (81-97); MEAN PLATELET VOLUME 9.1 fL (7.4-10.4); MONOCYTES # (AUTO) 1.05 x10^3/uL (0.2-0.8); MONOCYTES % (AUTO) 8 % (2-9); NEUTROPHILS % (AUTO) 78 % (42-75); PLATELET COUNT 273 x10^3/uL (130-400); RED BLOOD COUNT 3.65 x10^6/uL (4.38-5.82); RED CELL DISTRIBUTION WIDTH 15.6 % (9.4-14.8)
[2018-10-16 05:16] VITALS: BP 123/85
[2018-10-16] MEDS ORDERED: POTASSIUM CHLORIDE 20 MEQ TAB.ER.PRT PO ONE (07:00)
[2018-10-16] MEDS: POTASSIUM CHLORIDE 40 MEQ in SODIUM CHLORIDE 0.45% 1,000 ML IV SCH ×2 (08:57→17:11)
[2018-10-16] MEDS: RIFAXIMIN 550 MG TABLET PO SCH ×2 (08:58→21:05)
[2018-10-16] MEDS: SODIUM CHLORIDE FLUSH 10ML SYR IVF SCH ×2 (08:58→21:05)
[2018-10-16] MEDS ORDERED: ZIPRASIDONE 20 MG INJ IM ONE (10:00)
[2018-10-16] MEDS: OCTREOTIDE 500 MCG/ML, 1ML (0.5MG/ML) SQ SCH ×2 (10:47→21:06)
[2018-10-16] MEDS ORDERED: OMNIPAQUE 350 MG/ML, 100ML BOTTLE ONE (11:55)
[2018-10-16] MEDS: ENOXAPARIN 40 MG/0.4 ML SQ SCH (21:06)
[2018-10-17] MEDS: POTASSIUM CHLORIDE 40 MEQ in SODIUM CHLORIDE 0.45% 1,000 ML IV SCH ×3 (02:51→23:05)
[2018-10-17] MEDS: METOCLOPRAMIDE 5 MG/ML, 2ML IVPush SCH ×4 (03:34→23:05)
[2018-10-17 04:45] LABS: BASOPHILS # (AUTO) 0.04 x10^3/uL (0-0.1); BASOPHILS % (AUTO) 0 % (0-1); EOSINOPHILS % (AUTO) 1 % (1-7); LYMPHOCYTES # (AUTO) 1.35 x10^3/uL (1-3.4); LYMPHOCYTES % (AUTO) 9 % (22-44); MD NO; MEAN CORPUSCULAR HEMOGLOBIN 33.2 pg (27.5-34.5); MEAN CORPUSCULAR HGB CONC 32.1 g/dL (33.2-36.2); MEAN CORPUSCULAR VOLUME 103.3 fL (81-97); MEAN PLATELET VOLUME 8.9 fL (7.4-10.4); MONOCYTES # (AUTO) 1.18 x10^3/uL (0.2-0.8); MONOCYTES % (AUTO) 8 % (2-9); NEUTROPHILS # (AUTO) 11.77 x10^3/uL (1.8-6.8); NEUTROPHILS % (AUTO) 82 % (42-75); PLATELET COUNT 317 x10^3/uL (130-400); RED BLOOD COUNT 3.88 x10^6/uL (4.38-5.82); RED CELL DISTRIBUTION WIDTH 15.7 % (9.4-14.8)
[2018-10-17 04:54] LABS: ANION GAP 4 mmol/L (5-15); CALCIUM 7.8 mg/dL (8.5-10.1); CHLORIDE 108 mmol/L (98-107)
[2018-10-17 04:55] LABS: CREATININE 0.45 mg/dL (0.7-1.3)
[2018-10-17 05:11] VITALS: BP 127/86
[2018-10-17] MEDS: VANCOMYCIN 50 MG/ML ORAL SUSP NG SCH ×4 (05:49→23:05)
[2018-10-17] MEDS: RIFAXIMIN 550 MG TABLET PO SCH ×2 (08:05→19:33)
[2018-10-17] MEDS ORDERED: SODIUM CHLORIDE 0.9% 500 ML IV ONE (08:30)
[2018-10-17] MEDS: OCTREOTIDE 500 MCG/ML, 1ML (0.5MG/ML) SQ SCH ×2 (09:17→21:12)
[2018-10-17] MEDS: SODIUM CHLORIDE FLUSH 10ML SYR IVF SCH ×2 (09:17→19:33)
[2018-10-17] MEDS: ENOXAPARIN 40 MG/0.4 ML SQ SCH (19:33)
[2018-10-18] MEDS: VANCOMYCIN 50 MG/ML ORAL SUSP NG SCH ×4 (04:30→23:24)
[2018-10-18] MEDS: METOCLOPRAMIDE 5 MG/ML, 2ML IVPush SCH (04:30)
[2018-10-18 05:53] LABS: CHLORIDE 107 mmol/L (98-107)
[2018-10-18 05:57] LABS: BASOPHILS # (AUTO) 0.01 x10^3/uL (0-0.1); BASOPHILS % (AUTO) 0 % (0-1); EOSINOPHILS # (AUTO) 0.14 x10^3/uL (0-0.4); EOSINOPHILS % (AUTO) 1 % (1-7); LYMPHOCYTES # (AUTO) 1.49 x10^3/uL (1-3.4); LYMPHOCYTES % (AUTO) 9 % (22-44); MD NO; MEAN CORPUSCULAR HEMOGLOBIN 33.4 pg (27.5-34.5); MEAN CORPUSCULAR HGB CONC 32.3 g/dL (33.2-36.2); MEAN CORPUSCULAR VOLUME 103.4 fL (81-97); MEAN PLATELET VOLUME 8.8 fL (7.4-10.4); MONOCYTES # (AUTO) 1.33 x10^3/uL (0.2-0.8); MONOCYTES % (AUTO) 8 % (2-9); NEUTROPHILS # (AUTO) 12.96 x10^3/uL (1.8-6.8); NEUTROPHILS % (AUTO) 81 % (42-75); PLATELET COUNT 361 x10^3/uL (130-400); RED BLOOD COUNT 3.73 x10^6/uL (4.38-5.82); RED CELL DISTRIBUTION WIDTH 15.6 % (9.4-14.8)
[2018-10-18 05:59] LABS: ANION GAP 5 mmol/L (5-15); CALCIUM 8.1 mg/dL (8.5-10.1); CREATININE 0.44 mg/dL (0.7-1.3)
[2018-10-18] MEDS: SODIUM CHLORIDE FLUSH 10ML SYR IVF SCH ×2 (09:20→19:16)
[2018-10-18] MEDS: RIFAXIMIN 550 MG TABLET PO SCH ×2 (09:20→19:11)
[2018-10-18] MEDS: POTASSIUM CHLORIDE 40 MEQ in SODIUM CHLORIDE 0.45% 1,000 ML IV SCH (09:21)
[2018-10-18] MEDS: OCTREOTIDE 500 MCG/ML, 1ML (0.5MG/ML) SQ SCH (11:26)
[2018-10-18] MEDS: DEXMEDETOMIDINE 200 MCG in SODIUM CHLORIDE 0.9% 48 ML IV PRN ×2 (15:52→19:46)
--- NOTE | 2018-10-18 16:01 | NUR ---
PUMP RUNNER RECOMMEND: NPO with Dobhoff Single ice chips ok with RN only Addendum: 10/18/18 at [address] Amended: Links added.
[2018-10-18] MEDS: ENOXAPARIN 40 MG/0.4 ML SQ SCH (19:11)
[2018-10-19] MEDS: POTASSIUM CHLORIDE 40 MEQ in SODIUM CHLORIDE 0.45% 1,000 ML IV SCH (04:01)
[2018-10-19 04:49] LABS: MEAN CORPUSCULAR HEMOGLOBIN 33.4 pg (27.5-34.5); MEAN CORPUSCULAR HGB CONC 32.4 g/dL (33.2-36.2); MEAN CORPUSCULAR VOLUME 103.3 fL (81-97); MEAN PLATELET VOLUME 8.7 fL (7.4-10.4); PLATELET COUNT 376 x10^3/uL (130-400); RED BLOOD COUNT 3.51 x10^6/uL (4.38-5.82); RED CELL DISTRIBUTION WIDTH 15.7 % (9.4-14.8)
[2018-10-19 04:57] LABS: ANION GAP 5 mmol/L (5-15); CALCIUM 8.2 mg/dL (8.5-10.1); CHLORIDE 107 mmol/L (98-107); CREATININE 0.42 mg/dL (0.7-1.3); TRIGLYCERIDES 78 mg/dL (50-200)
[2018-10-19] MEDS: DEXMEDETOMIDINE 200 MCG in SODIUM CHLORIDE 0.9% 48 ML IV PRN (04:59)
[2018-10-19] MEDS: VANCOMYCIN 50 MG/ML ORAL SUSP NG SCH ×3 (04:59→18:04)
[2018-10-19 05:41] LABS: BASOPHILS # (AUTO) 0.04 x10^3/uL (0-0.1); BASOPHILS % (AUTO) 0 % (0-1); EOSINOPHILS # (AUTO) 0.17 x10^3/uL (0-0.4); EOSINOPHILS % (AUTO) 1 % (1-7); LYMPHOCYTES # (AUTO) 1.97 x10^3/uL (1-3.4); LYMPHOCYTES % (AUTO) 10 % (22-44); MD SCAN; MONOCYTES # (AUTO) 1.56 x10^3/uL (0.2-0.8); MONOCYTES % (AUTO) 8 % (2-9); NEUTROPHILS # (AUTO) 16.18 x10^3/uL (1.8-6.8); NEUTROPHILS % (AUTO) 81 % (42-75)
[2018-10-19] MEDS: MEROPENEM 1 GM in SODIUM CHLORIDE 0.9% 100 ML IV SCH ×3 (07:38→23:48)
[2018-10-19] MEDS: LACTOBACILLUS 1GM/ PACKET PO SCH ×3 (07:38→22:30)
[2018-10-19] MEDS: SODIUM CHLORIDE FLUSH 10ML SYR IVF SCH ×2 (07:38→22:21)
[2018-10-19] MEDS: RIFAXIMIN 550 MG TABLET PO SCH ×2 (07:38→22:30)
[2018-10-19] MEDS: METRONIDAZOLE PMX 500MG/100ML 100 ML IV SCH ×2 (08:40→18:04)
[2018-10-19] MEDS: ENOXAPARIN 40 MG/0.4 ML SQ SCH (22:29)
[2018-10-20] MEDS ORDERED: [UNRECOGNIZED DRUG - MIXTURE] PO ONE ×2 (01:00)
[2018-10-20] MEDS: LACTOBACILLUS 1GM/ PACKET PO SCH (01:07)
[2018-10-20] MEDS: VANCOMYCIN 50 MG/ML ORAL SUSP NG SCH ×4 (01:07→19:53)
[2018-10-20] MEDS: RIFAXIMIN 550 MG TABLET PO SCH ×2 (01:08→19:53)
[2018-10-20] MEDS: METRONIDAZOLE PMX 500MG/100ML 100 ML IV SCH ×2 (02:06→09:47)
[2018-10-20] MEDS: DEXMEDETOMIDINE 200 MCG in SODIUM CHLORIDE 0.9% 48 ML IV PRN ×2 (03:06→21:39)
[2018-10-20] MEDS: POTASSIUM CHLORIDE 40 MEQ in SODIUM CHLORIDE 0.45% 1,000 ML IV SCH (03:07)
[2018-10-20 04:35] LABS: BASOPHILS # (AUTO) 0.02 x10^3/uL (0-0.1); BASOPHILS % (AUTO) 0 % (0-1); EOSINOPHILS # (AUTO) 0.16 x10^3/uL (0-0.4); EOSINOPHILS % (AUTO) 1 % (1-7); LYMPHOCYTES # (AUTO) 1.67 x10^3/uL (1-3.4); LYMPHOCYTES % (AUTO) 10 % (22-44); MD NO; MEAN CORPUSCULAR HEMOGLOBIN 33.4 pg (27.5-34.5); MEAN CORPUSCULAR HGB CONC 32.2 g/dL (33.2-36.2); MEAN CORPUSCULAR VOLUME 103.6 fL (81-97); MEAN PLATELET VOLUME 8.7 fL (7.4-10.4); MONOCYTES # (AUTO) 0.99 x10^3/uL (0.2-0.8); MONOCYTES % (AUTO) 6 % (2-9); NEUTROPHILS # (AUTO) 14.61 x10^3/uL (1.8-6.8); NEUTROPHILS % (AUTO) 84 % (42-75); PLATELET COUNT 409 x10^3/uL (130-400)
[2018-10-20 04:45] LABS: ANION GAP 7 mmol/L (5-15); CALCIUM 7.9 mg/dL (8.5-10.1); CHLORIDE 108 mmol/L (98-107); CREATININE 0.51 mg/dL (0.7-1.3)
[2018-10-20] MEDS: MEROPENEM 1 GM in SODIUM CHLORIDE 0.9% 100 ML IV SCH ×2 (09:07→17:24)
[2018-10-20] MEDS: SODIUM CHLORIDE FLUSH 10ML SYR IVF SCH ×2 (09:07→19:53)
[2018-10-20] MEDS: LACTOBACILLUS CHEW TABLET NG SCH ×3 (09:08→19:53)
[2018-10-20] MEDS ORDERED: SODIUM CHLORIDE 0.9%, 500ML IVBOLUS ONE (15:30)
[2018-10-20] MEDS: ENOXAPARIN 40 MG/0.4 ML SQ SCH (23:19)
[2018-10-21] MEDS: POTASSIUM CHLORIDE 40 MEQ in SODIUM CHLORIDE 0.45% 1,000 ML IV SCH (02:00)
[2018-10-21] MEDS: MEROPENEM 1 GM in SODIUM CHLORIDE 0.9% 100 ML IV SCH ×3 (02:01→18:31)
[2018-10-21] MEDS: VANCOMYCIN 50 MG/ML ORAL SUSP NG SCH ×4 (02:01→21:20)
[2018-10-21 04:32] LABS: MEAN CORPUSCULAR HEMOGLOBIN 33.1 pg (27.5-34.5); MEAN CORPUSCULAR VOLUME 103.4 fL (81-97); MEAN PLATELET VOLUME 8.4 fL (7.4-10.4); PLATELET COUNT 437 x10^3/uL (130-400); RED BLOOD COUNT 3.35 x10^6/uL (4.38-5.82); RED CELL DISTRIBUTION WIDTH 15.7 % (9.4-14.8)
[2018-10-21 04:38] LABS: ANION GAP 6 mmol/L (5-15); CALCIUM 7.8 mg/dL (8.5-10.1); CHLORIDE 111 mmol/L (98-107); CREATININE 0.58 mg/dL (0.7-1.3)
[2018-10-21 05:41] LABS: BASOPHILS # (AUTO) 0.02 x10^3/uL (0-0.1); BASOPHILS % (AUTO) 0 % (0-1); EOSINOPHILS # (AUTO) 0.22 x10^3/uL (0-0.4); EOSINOPHILS % (AUTO) 1 % (1-7); LYMPHOCYTES # (AUTO) 1.49 x10^3/uL (1-3.4); LYMPHOCYTES % (AUTO) 10 % (22-44); MD SCAN; MONOCYTES # (AUTO) 1.09 x10^3/uL (0.2-0.8); MONOCYTES % (AUTO) 7 % (2-9); NEUTROPHILS # (AUTO) 12.92 x10^3/uL (1.8-6.8); NEUTROPHILS % (AUTO) 82 % (42-75)
[2018-10-21] MEDS: RIFAXIMIN 550 MG TABLET PO SCH ×2 (09:07→21:20)
[2018-10-21] MEDS: LACTOBACILLUS CHEW TABLET NG SCH ×3 (09:07→21:20)
[2018-10-21] MEDS: QUETIAPINE 25MG TABLET NG SCH ×2 (09:08→21:20)
[2018-10-21] MEDS ORDERED: FUROSEMIDE 40 MG/4 ML IV STA (09:42)
[2018-10-21] MEDS: SODIUM CHLORIDE FLUSH 10ML SYR IVF SCH ×2 (10:11→21:21)
[2018-10-21] MEDS ORDERED: ALBUTEROL SULFATE 2.5 MG/3 ML ONE (11:16)
[2018-10-21 13:22] LABS: FIO2 36.7 %
[2018-10-21] MEDS ORDERED: ALBUTEROL SULFATE 2.5 MG/3 ML NPPB SCH (15:00)
[2018-10-21] MEDS: HALOPERIDOL 5 MG/ML IV PRN (15:56)
[2018-10-21] MEDS: ALBUTEROL SULFATE 2.5 MG/3 ML NPPB SCH ×2 (19:20→23:45)
[2018-10-21] MEDS: ENOXAPARIN 40 MG/0.4 ML SQ SCH (21:22)
[2018-10-22] MEDS: POTASSIUM CHLORIDE 40 MEQ in SODIUM CHLORIDE 0.45% 1,000 ML IV SCH (00:12)
[2018-10-22] MEDS: VANCOMYCIN 50 MG/ML ORAL SUSP NG SCH ×4 (02:02→21:46)
[2018-10-22] MEDS: MEROPENEM 1 GM in SODIUM CHLORIDE 0.9% 100 ML IV SCH ×3 (02:02→16:57)
[2018-10-22] MEDS: ALBUTEROL SULFATE 2.5 MG/3 ML NPPB SCH ×6 (03:00→22:24)
[2018-10-22 04:30] LABS: MEAN CORPUSCULAR HEMOGLOBIN 33.5 pg (27.5-34.5); MEAN CORPUSCULAR HGB CONC 32.2 g/dL (33.2-36.2); MEAN CORPUSCULAR VOLUME 104.1 fL (81-97); MEAN PLATELET VOLUME 8.7 fL (7.4-10.4); PLATELET COUNT 520 x10^3/uL (130-400); RED BLOOD COUNT 3.52 x10^6/uL (4.38-5.82); RED CELL DISTRIBUTION WIDTH 15.9 % (9.4-14.8)
[2018-10-22 04:40] LABS: CHLORIDE 110 mmol/L (98-107)
[2018-10-22 04:48] LABS: BASOPHILS # (AUTO) 0.02 x10^3/uL (0-0.1); BASOPHILS % (AUTO) 0 % (0-1); EOSINOPHILS # (AUTO) 0.11 x10^3/uL (0-0.4); EOSINOPHILS % (AUTO) 1 % (1-7); LYMPHOCYTES # (AUTO) 1.82 x10^3/uL (1-3.4); LYMPHOCYTES % (AUTO) 11 % (22-44); MD SCAN; MONOCYTES # (AUTO) 1.38 x10^3/uL (0.2-0.8); MONOCYTES % (AUTO) 8 % (2-9); NEUTROPHILS % (AUTO) 80 % (42-75)
[2018-10-22 04:52] LABS: ALANINE AMINOTRANSFERASE 80 U/L (12-78); ALKALINE PHOSPHATASE 230 U/L (45-117); ANION GAP 8 mmol/L (5-15); BILIRUBIN,TOTAL 0.9 mg/dL (0.2-1.0); CALCIUM 8.1 mg/dL (8.5-10.1); CREATININE 0.66 mg/dL (0.7-1.3); TOTAL PROTEIN 5.6 g/dL (6.4-8.2)
[2018-10-22] MEDS ORDERED: MAGNESIUM SULFATE PMX 2GM/50ML 50 ML ONE (05:43)
[2018-10-22] MEDS ORDERED: FAMOTIDINE 20 MG/2 ML ONE (06:17)
[2018-10-22] MEDS ORDERED: PVN PER PHARMACY MC PRN ×2 (09:00)
[2018-10-22] MEDS ORDERED: FAMOTIDINE 20 MG/2 ML IVPush SCH (09:00)
[2018-10-22] MEDS: SODIUM CHLORIDE FLUSH 10ML SYR IVF SCH ×2 (09:00→21:47)
[2018-10-22] MEDS ORDERED: LIDOCAINE-MPF 1%, 5ML ONE (09:01)
[2018-10-22] MEDS ORDERED: FENTANYL PF 100 MCG/2ML ONE (09:15)
[2018-10-22] MEDS ORDERED: FENTANYL PF 100 MCG/2ML IVPush ONE (10:02)
[2018-10-22] MEDS ORDERED: ETOMIDATE 20 MG/10 ML IVPush ONE (10:03)
[2018-10-22] MEDS ORDERED: ROCURONIUM 10 MG/ML,10ML IVPush ONE (10:04)
[2018-10-22] MEDS ORDERED: VECURONIUM 10 MG IVPush ONE (10:08)
[2018-10-22] MEDS ORDERED: PROPOFOL 100 ML IV PRN (10:15)
[2018-10-22] MEDS ORDERED: NOREPINEPHRINE 4 MG in SODIUM CHLORIDE 0.9% 246 ML IV PRN (10:18)
[2018-10-22] MEDS ORDERED: LIDOCAINE-MPF 1%, 2ML ENDO PRN (10:30)
[2018-10-22] MEDS ORDERED: SODIUM CHLORIDE 0.9%, 500ML IVBOLUS ONE (10:30)
[2018-10-22] MEDS ORDERED: PHARMACY MAY ADJ FOR RENAL FX MC SCH (10:30)
[2018-10-22] MEDS ORDERED: SODIUM CHLORIDE 0.9%, 500ML IV ONE (10:30)
[2018-10-22] MEDS ORDERED: PANTOPRAZOLE 40 MG IV IVPush ONE (10:30)
[2018-10-22] MEDS ORDERED: QUETIAPINE 25MG TABLET NG PRN (10:30)
[2018-10-22] MEDS: PROPOFOL 100 ML IV PRN ×3 (10:36→21:49)
[2018-10-22 11:31] LABS: PH, VENOUS 7.357 pH (7.320-7.420)
[2018-10-22 11:33] LABS: MEAN CORPUSCULAR HEMOGLOBIN 32.4 pg (27.5-34.5); MEAN CORPUSCULAR HGB CONC 31.6 g/dL (33.2-36.2); MEAN CORPUSCULAR VOLUME 102.8 fL (81-97); MEAN PLATELET VOLUME 8.4 fL (7.4-10.4); PLATELET COUNT 566 x10^3/uL (130-400); RED BLOOD COUNT 3.43 x10^6/uL (4.38-5.82); RED CELL DISTRIBUTION WIDTH 15.3 % (9.4-14.8)
[2018-10-22] MEDS: LACTOBACILLUS CHEW TABLET NG SCH ×3 (11:36→21:46)
[2018-10-22] MEDS: RIFAXIMIN 550 MG TABLET PO SCH ×2 (11:36→21:46)
[2018-10-22 11:42] LABS: INTERNATIONAL NORMALIZED RATIO 1.44 (0.93-1.1); PROTHROMBIN TIME 14.9 Seconds (9.6-11.5)
[2018-10-22 11:43] LABS: ANION GAP 7 mmol/L (5-15); CALCIUM 8.1 mg/dL (8.5-10.1); CHLORIDE 112 mmol/L (98-107)
[2018-10-22 11:45] LABS: CREATININE 0.64 mg/dL (0.7-1.3); TRIGLYCERIDES 94 mg/dL (50-200)
[2018-10-22 12:22] LABS: MD YES
[2018-10-22 12:24] LABS: BAND#(MANUAL) 0.38 x10^3/uL; BANDS%(MANUAL) 2 % (0-7); LYMPH#(MANUAL) 1.34 x10^3/uL (1-3.4); LYMPHS% (MANUAL) 7 % (22-44); MONOS#(MANUAL) 1.34 x10^3/uL (0.3-2.7); MONOS% (MANUAL) 7 % (2-9); SEG#(MANUAL) 16.04 x10^3/uL (1.8-6.8); SEGS% (MANUAL) 84 % (42-75)
[2018-10-22 12:25] LABS: ANISOCYTOSIS 1+; HYPOCHROMIA 1+; OVALOCYTES 1+; POLYCHROMASIA 1+
[2018-10-22 12:26] LABS: <PLATELET ESTIMATE> INCREASED; <PLT MORPHOLOGY> NORMAL PLT MORPH
[2018-10-22 12:29] LABS: TROPONIN I < 0.015 ng/mL (0.000-0.045)
[2018-10-22] MEDS ORDERED: OMNIPAQUE 350 MG/ML, 100ML BOTTLE ONE (14:54)
[2018-10-22] MEDS ORDERED: VECURONIUM 10 MG ONE (15:12)
[2018-10-22] MEDS ORDERED: ETOMIDATE 20 MG/10 ML ONE (15:12)
[2018-10-22] MEDS ORDERED: PROPOFOL 10 MG/ML, 100ML IV ONE (15:12)
[2018-10-22] MEDS ORDERED: ROCURONIUM 10MG/ML,5ML ONE (15:12)
[2018-10-22 16:43] LABS: TROPONIN I < 0.015 ng/mL (0.000-0.045)
[2018-10-22] MEDS: FILTER, DISP 1.2 MICRON FOR TPN/PVN IV PRN (16:58)
[2018-10-22] MEDS ORDERED: SMOF TPN IV SCH ×2 (17:00→19:00)
[2018-10-22] MEDS ORDERED: AMINO ACID 10% IV SCH ×2 (17:00→19:00)
[2018-10-22] MEDS ORDERED: DEXTROSE 70% IV SCH ×2 (17:00→19:00)
[2018-10-22] MEDS ORDERED: [UNRECOGNIZED DRUG - OTHER] IV SCH ×2 (17:00→19:00)
[2018-10-22] MEDS ORDERED: FAT EMUL IV SCH ×2 (17:00→19:00)
[2018-10-22] MEDS ORDERED: DEXTROSE 10% 500 ML IV PRN (17:00)
[2018-10-22 19:03] LABS: MICROSCOPIC NOT IND
[2018-10-22 19:16] LABS: CULTURE INDICATED? NO
[2018-10-22] MEDS: ENOXAPARIN 40 MG/0.4 ML SQ SCH (21:46)
[2018-10-22] MEDS ORDERED: PANTOPRAZOLE 40 MG IV ONE (23:23)
[2018-10-23] MEDS: MEROPENEM 1 GM in SODIUM CHLORIDE 0.9% 100 ML IV SCH ×3 (01:48→18:10)
[2018-10-23] MEDS: VANCOMYCIN 50 MG/ML ORAL SUSP NG SCH ×4 (02:10→19:37)
[2018-10-23] MEDS: ALBUTEROL SULFATE 2.5 MG/3 ML NPPB SCH ×6 (02:24→22:11)
[2018-10-23 04:54] LABS: ALANINE AMINOTRANSFERASE 63 U/L (12-78); ALBUMIN 1.7 g/dL (3.4-5.0); ANION GAP 6 mmol/L (5-15); CALCIUM 7.8 mg/dL (8.5-10.1); CHLORIDE 111 mmol/L (98-107); CREATININE 0.53 mg/dL (0.7-1.3)
[2018-10-23 04:56] LABS: ALKALINE PHOSPHATASE 164 U/L (45-117); BILIRUBIN,TOTAL 0.8 mg/dL (0.2-1.0); TOTAL PROTEIN 4.9 g/dL (6.4-8.2)
[2018-10-23 04:57] LABS: BASOPHILS # (AUTO) 0.07 x10^3/uL (0-0.1); BASOPHILS % (AUTO) 1 % (0-1); EOSINOPHILS # (AUTO) 0.35 x10^3/uL (0-0.4); EOSINOPHILS % (AUTO) 2 % (1-7); LYMPHOCYTES # (AUTO) 2.04 x10^3/uL (1-3.4); LYMPHOCYTES % (AUTO) 13 % (22-44); MD NO; MEAN CORPUSCULAR HEMOGLOBIN 33.3 pg (27.5-34.5); MEAN CORPUSCULAR HGB CONC 32.2 g/dL (33.2-36.2); MEAN CORPUSCULAR VOLUME 103.3 fL (81-97); MEAN PLATELET VOLUME 8.6 fL (7.4-10.4); MONOCYTES % (AUTO) 8 % (2-9); NEUTROPHILS % (AUTO) 76 % (42-75); PLATELET COUNT 427 x10^3/uL (130-400); RED BLOOD COUNT 2.99 x10^6/uL (4.38-5.82); RED CELL DISTRIBUTION WIDTH 15.2 % (9.4-14.8)
[2018-10-23] MEDS: INSULIN REGULAR, HUMAN 100 UNIT/ML 3ML VIAL LOW DOSE SS SQ-INSULIN SCH ×3 (06:45→21:48)
[2018-10-23] MEDS ORDERED: TPN PER PHARMACY MC PRN (08:00)
[2018-10-23] MEDS: RIFAXIMIN 550 MG TABLET PO SCH ×2 (08:15→21:40)
[2018-10-23] MEDS: LACTOBACILLUS CHEW TABLET NG SCH ×3 (08:15→21:40)
[2018-10-23] MEDS: FENTANYL PF 100 MCG/2ML IVPush PRN ×3 (09:04→13:46)
[2018-10-23] MEDS: SODIUM CHLORIDE FLUSH 10ML SYR IVF SCH ×2 (09:04→21:40)
[2018-10-23] MEDS ORDERED: MAGNESIUM SULFATE PMX 2GM/50ML 50 ML IV ONE (10:30)
[2018-10-23] MEDS: PROPOFOL 100 ML IV PRN ×2 (15:30→19:33)
[2018-10-23] MEDS ORDERED: SMOF TPN IV SCH (17:00)
[2018-10-23] MEDS ORDERED: [UNRECOGNIZED DRUG - OTHER] IV SCH (17:00)
[2018-10-23] MEDS ORDERED: FAT EMUL IV SCH (17:00)
[2018-10-23] MEDS ORDERED: AMINO ACID 10% IV SCH (17:00)
[2018-10-23] MEDS ORDERED: DEXTROSE 70% IV SCH (17:00)
[2018-10-23] MEDS: FILTER, DISP 1.2 MICRON FOR TPN/PVN IV PRN (18:09)
[2018-10-23] MEDS: ENOXAPARIN 40 MG/0.4 ML SQ SCH (21:40)
[2018-10-24] MEDS: PROPOFOL 100 ML IV PRN ×4 (00:33→21:18)
[2018-10-24] MEDS: VANCOMYCIN 50 MG/ML ORAL SUSP NG SCH ×4 (02:06→20:39)
[2018-10-24] MEDS: MEROPENEM 1 GM in SODIUM CHLORIDE 0.9% 100 ML IV SCH ×3 (02:07→18:03)
[2018-10-24] MEDS: ALBUTEROL SULFATE 2.5 MG/3 ML NPPB SCH ×6 (02:26→21:58)
[2018-10-24 04:28] LABS: BASOPHILS # (AUTO) 0.05 x10^3/uL (0-0.1); BASOPHILS % (AUTO) 0 % (0-1); EOSINOPHILS # (AUTO) 0.42 x10^3/uL (0-0.4); EOSINOPHILS % (AUTO) 3 % (1-7); LYMPHOCYTES # (AUTO) 1.62 x10^3/uL (1-3.4); LYMPHOCYTES % (AUTO) 12 % (22-44); MD NO; MEAN CORPUSCULAR HEMOGLOBIN 32.6 pg (27.5-34.5); MEAN CORPUSCULAR HGB CONC 31.6 g/dL (33.2-36.2); MEAN CORPUSCULAR VOLUME 103.3 fL (81-97); MEAN PLATELET VOLUME 8.4 fL (7.4-10.4); MONOCYTES % (AUTO) 8 % (2-9); NEUTROPHILS # (AUTO) 10.71 x10^3/uL (1.8-6.8); NEUTROPHILS % (AUTO) 77 % (42-75); PLATELET COUNT 441 x10^3/uL (130-400); RED BLOOD COUNT 3.06 x10^6/uL (4.38-5.82); RED CELL DISTRIBUTION WIDTH 15.5 % (9.4-14.8)
[2018-10-24 04:43] LABS: ANION GAP 4 mmol/L (5-15); CALCIUM 7.8 mg/dL (8.5-10.1); CHLORIDE 109 mmol/L (98-107); CREATININE 0.45 mg/dL (0.7-1.3)
[2018-10-24] MEDS: INSULIN REGULAR, HUMAN 100 UNIT/ML 3ML VIAL LOW DOSE SS SQ-INSULIN SCH ×3 (05:39→22:00)
[2018-10-24] MEDS: FENTANYL PF 100 MCG/2ML IVPush PRN ×3 (08:26→14:50)
[2018-10-24] MEDS: SODIUM CHLORIDE FLUSH 10ML SYR IVF SCH ×2 (08:26→20:40)
[2018-10-24] MEDS: RIFAXIMIN 550 MG TABLET PO SCH ×2 (08:27→20:40)
[2018-10-24] MEDS: LACTOBACILLUS CHEW TABLET NG SCH ×3 (08:27→20:40)
[2018-10-24] MEDS: FILTER, DISP 1.2 MICRON FOR TPN/PVN IV PRN (16:48)
[2018-10-24] MEDS ORDERED: AMINO ACID 10% IV SCH (17:00)
[2018-10-24] MEDS ORDERED: [UNRECOGNIZED DRUG - OTHER] IV SCH (17:00)
[2018-10-24] MEDS ORDERED: SMOF TPN IV SCH (17:00)
[2018-10-24] MEDS ORDERED: DEXTROSE 70% IV SCH (17:00)
[2018-10-24] MEDS ORDERED: FAT EMUL IV SCH (17:00)
[2018-10-24] MEDS: ENOXAPARIN 40 MG/0.4 ML SQ SCH (20:40)
[2018-10-25] MEDS: PROPOFOL 100 ML IV PRN ×4 (01:09→21:04)
[2018-10-25] MEDS: ALBUTEROL SULFATE 2.5 MG/3 ML NPPB SCH ×6 (02:10→22:03)
[2018-10-25] MEDS: VANCOMYCIN 50 MG/ML ORAL SUSP NG SCH ×4 (02:35→21:03)
[2018-10-25] MEDS: MEROPENEM 1 GM in SODIUM CHLORIDE 0.9% 100 ML IV SCH ×3 (02:35→17:43)
[2018-10-25] MEDS: INSULIN REGULAR, HUMAN 100 UNIT/ML 3ML VIAL LOW DOSE SS SQ-INSULIN SCH ×4 (06:00→21:20)
[2018-10-25] MEDS: RIFAXIMIN 550 MG TABLET PO SCH ×2 (08:03→21:03)
[2018-10-25] MEDS: LACTOBACILLUS CHEW TABLET NG SCH ×3 (08:03→21:03)
[2018-10-25] MEDS: SODIUM CHLORIDE FLUSH 10ML SYR IVF SCH ×2 (08:03→21:04)
[2018-10-25 08:36] LABS: BASOPHILS % (AUTO) 1 % (0-1); EOSINOPHILS # (AUTO) 0.35 x10^3/uL (0-0.4); EOSINOPHILS % (AUTO) 3 % (1-7); LYMPHOCYTES # (AUTO) 1.98 x10^3/uL (1-3.4); LYMPHOCYTES % (AUTO) 17 % (22-44); MD NO; MEAN CORPUSCULAR HEMOGLOBIN 32.5 pg (27.5-34.5); MEAN CORPUSCULAR HGB CONC 31.9 g/dL (33.2-36.2); MEAN CORPUSCULAR VOLUME 102.1 fL (81-97); MEAN PLATELET VOLUME 8.1 fL (7.4-10.4); MONOCYTES # (AUTO) 1.12 x10^3/uL (0.2-0.8); MONOCYTES % (AUTO) 10 % (2-9); NEUTROPHILS # (AUTO) 7.95 x10^3/uL (1.8-6.8); NEUTROPHILS % (AUTO) 69 % (42-75); PLATELET COUNT 455 x10^3/uL (130-400); RED BLOOD COUNT 3.06 x10^6/uL (4.38-5.82); RED CELL DISTRIBUTION WIDTH 15.2 % (9.4-14.8)
[2018-10-25 08:50] LABS: ANION GAP 4 mmol/L (5-15); CHLORIDE 107 mmol/L (98-107)
[2018-10-25 08:56] LABS: CREATININE 0.39 mg/dL (0.7-1.3); PREALBUMIN 9.8 mg/dL (20.0-40.0); TRIGLYCERIDES 68 mg/dL (50-200)
[2018-10-25] MEDS: FENTANYL PF 100 MCG/2ML IVPush PRN (11:09)
[2018-10-25] MEDS: FILTER, DISP 1.2 MICRON FOR TPN/PVN IV PRN (16:11)
[2018-10-25] MEDS ORDERED: [UNRECOGNIZED DRUG - OTHER] IV SCH (17:00)
[2018-10-25] MEDS ORDERED: FAT EMUL IV SCH (17:00)
[2018-10-25] MEDS ORDERED: DEXTROSE 70% IV SCH (17:00)
[2018-10-25] MEDS ORDERED: SMOF TPN IV SCH (17:00)
[2018-10-25] MEDS ORDERED: AMINO ACID 10% IV SCH (17:00)
[2018-10-25] MEDS: ENOXAPARIN 40 MG/0.4 ML SQ SCH (21:03)
[2018-10-26] MEDS: ALBUTEROL SULFATE 2.5 MG/3 ML NPPB SCH ×6 (01:28→22:50)
[2018-10-26] MEDS: VANCOMYCIN 50 MG/ML ORAL SUSP NG SCH ×2 (02:08→21:47)
[2018-10-26] MEDS: MEROPENEM 1 GM in SODIUM CHLORIDE 0.9% 100 ML IV SCH ×3 (02:09→17:19)
[2018-10-26 04:21] VITALS: BP 108/56
[2018-10-26 04:31] LABS: BASOPHILS # (AUTO) 0.04 x10^3/uL (0-0.1); BASOPHILS % (AUTO) 0 % (0-1); EOSINOPHILS # (AUTO) 0.36 x10^3/uL (0-0.4); EOSINOPHILS % (AUTO) 3 % (1-7); LYMPHOCYTES # (AUTO) 1.77 x10^3/uL (1-3.4); LYMPHOCYTES % (AUTO) 15 % (22-44); MD NO; MEAN CORPUSCULAR HEMOGLOBIN 32.6 pg (27.5-34.5); MEAN CORPUSCULAR HGB CONC 31.4 g/dL (33.2-36.2); MEAN CORPUSCULAR VOLUME 103.8 fL (81-97); MEAN PLATELET VOLUME 8.3 fL (7.4-10.4); MONOCYTES # (AUTO) 1.22 x10^3/uL (0.2-0.8); MONOCYTES % (AUTO) 10 % (2-9); NEUTROPHILS # (AUTO) 8.61 x10^3/uL (1.8-6.8); NEUTROPHILS % (AUTO) 72 % (42-75); PLATELET COUNT 443 x10^3/uL (130-400); RED BLOOD COUNT 2.96 x10^6/uL (4.38-5.82); RED CELL DISTRIBUTION WIDTH 15.1 % (9.4-14.8)
[2018-10-26 04:39] LABS: ANION GAP 3 mmol/L (5-15); CALCIUM 7.6 mg/dL (8.5-10.1); CHLORIDE 105 mmol/L (98-107); CREATININE 0.48 mg/dL (0.7-1.3)
[2018-10-26] MEDS: PROPOFOL 100 ML IV PRN ×3 (05:10→18:01)
[2018-10-26] MEDS: INSULIN REGULAR, HUMAN 100 UNIT/ML 3ML VIAL LOW DOSE SS SQ-INSULIN SCH ×3 (05:42→21:44)
[2018-10-26] MEDS: RIFAXIMIN 550 MG TABLET PO SCH ×2 (08:38→21:43)
[2018-10-26] MEDS: LACTOBACILLUS CHEW TABLET NG SCH ×3 (08:38→21:42)
[2018-10-26] MEDS: SODIUM CHLORIDE FLUSH 10ML SYR IVF SCH ×2 (08:39→21:42)
[2018-10-26] MEDS: FENTANYL PF 100 MCG/2ML IVPush PRN (15:15)
[2018-10-26] MEDS ORDERED: AMINO ACID 10% IV SCH (17:00)
[2018-10-26] MEDS ORDERED: FAT EMUL IV SCH (17:00)
[2018-10-26] MEDS ORDERED: SMOF TPN IV SCH (17:00)
[2018-10-26] MEDS ORDERED: [UNRECOGNIZED DRUG - OTHER] IV SCH (17:00)
[2018-10-26] MEDS ORDERED: DEXTROSE 70% IV SCH (17:00)
[2018-10-26] MEDS: FILTER, DISP 1.2 MICRON FOR TPN/PVN IV PRN (17:06)
[2018-10-26] MEDS: ENOXAPARIN 40 MG/0.4 ML SQ SCH (21:43)
[2018-10-27] MEDS: MEROPENEM 1 GM in SODIUM CHLORIDE 0.9% 100 ML IV SCH ×3 (02:06→17:44)
[2018-10-27] MEDS: ALBUTEROL SULFATE 2.5 MG/3 ML NPPB SCH ×6 (02:15→22:25)
[2018-10-27 04:00] VITALS: BP 103/71
[2018-10-27 04:40] LABS: BASOPHILS # (AUTO) 0.11 x10^3/uL (0-0.1); BASOPHILS % (AUTO) 1 % (0-1); EOSINOPHILS # (AUTO) 0.37 x10^3/uL (0-0.4); EOSINOPHILS % (AUTO) 3 % (1-7); LYMPHOCYTES # (AUTO) 1.48 x10^3/uL (1-3.4); LYMPHOCYTES % (AUTO) 13 % (22-44); MD NO; MEAN CORPUSCULAR HEMOGLOBIN 33.6 pg (27.5-34.5); MEAN CORPUSCULAR HGB CONC 32.7 g/dL (33.2-36.2); MEAN CORPUSCULAR VOLUME 102.9 fL (81-97); MEAN PLATELET VOLUME 8.1 fL (7.4-10.4); MONOCYTES # (AUTO) 1.12 x10^3/uL (0.2-0.8); MONOCYTES % (AUTO) 10 % (2-9); NEUTROPHILS # (AUTO) 8.56 x10^3/uL (1.8-6.8); NEUTROPHILS % (AUTO) 74 % (42-75); PLATELET COUNT 434 x10^3/uL (130-400); RED BLOOD COUNT 2.99 x10^6/uL (4.38-5.82); RED CELL DISTRIBUTION WIDTH 14.6 % (9.4-14.8)
[2018-10-27] MEDS: PROPOFOL 100 ML IV PRN ×3 (04:49→16:45)
[2018-10-27 05:04] LABS: ANION GAP 6 mmol/L (5-15); CALCIUM 8.1 mg/dL (8.5-10.1); CHLORIDE 106 mmol/L (98-107); CREATININE 0.44 mg/dL (0.7-1.3)
[2018-10-27] MEDS: INSULIN REGULAR, HUMAN 100 UNIT/ML 3ML VIAL LOW DOSE SS SQ-INSULIN SCH ×3 (05:37→22:00)
[2018-10-27] MEDS: RIFAXIMIN 550 MG TABLET PO SCH ×2 (08:40→22:44)
[2018-10-27] MEDS: LACTOBACILLUS CHEW TABLET NG SCH ×3 (08:40→22:44)
[2018-10-27] MEDS: VANCOMYCIN 50 MG/ML ORAL SUSP NG SCH ×2 (08:40→22:45)
[2018-10-27] MEDS: SODIUM CHLORIDE FLUSH 10ML SYR IVF SCH ×2 (08:41→22:44)
[2018-10-27] MEDS: FUROSEMIDE 40 MG/4 ML IV SCH ×2 (09:30→22:44)
[2018-10-27] MEDS: FILTER, DISP 1.2 MICRON FOR TPN/PVN IV PRN (16:45)
[2018-10-27] MEDS ORDERED: DEXTROSE 70% IV SCH (17:00)
[2018-10-27] MEDS ORDERED: FAT EMUL IV SCH (17:00)
[2018-10-27] MEDS ORDERED: AMINO ACID 10% IV SCH (17:00)
[2018-10-27] MEDS ORDERED: SMOF TPN IV SCH (17:00)
[2018-10-27] MEDS ORDERED: [UNRECOGNIZED DRUG - OTHER] IV SCH (17:00)
[2018-10-27] MEDS: ENOXAPARIN 40 MG/0.4 ML SQ SCH (22:45)
[2018-10-28] MEDS: PROPOFOL 100 ML IV PRN (00:42)
[2018-10-28] MEDS: ALBUTEROL SULFATE 2.5 MG/3 ML NPPB SCH ×6 (02:25→23:00)
[2018-10-28] MEDS: MEROPENEM 1 GM in SODIUM CHLORIDE 0.9% 100 ML IV SCH ×3 (03:27→18:25)
[2018-10-28] MEDS: INSULIN REGULAR, HUMAN 100 UNIT/ML 3ML VIAL LOW DOSE SS SQ-INSULIN SCH ×3 (06:00→22:00)
[2018-10-28 06:17] LABS: BASOPHILS # (AUTO) 0.03 x10^3/uL (0-0.1); BASOPHILS % (AUTO) 0 % (0-1); EOSINOPHILS % (AUTO) 3 % (1-7); LYMPHOCYTES # (AUTO) 1.41 x10^3/uL (1-3.4); LYMPHOCYTES % (AUTO) 11 % (22-44); MD NO; MEAN CORPUSCULAR HEMOGLOBIN 32.3 pg (27.5-34.5); MONOCYTES # (AUTO) 1.16 x10^3/uL (0.2-0.8); MONOCYTES % (AUTO) 9 % (2-9); NEUTROPHILS # (AUTO) 9.48 x10^3/uL (1.8-6.8); NEUTROPHILS % (AUTO) 76 % (42-75); PLATELET COUNT 395 x10^3/uL (130-400); RED BLOOD COUNT 3.27 x10^6/uL (4.38-5.82); RED CELL DISTRIBUTION WIDTH 15.2 % (9.4-14.8)
[2018-10-28 06:22] LABS: ANION GAP 5 mmol/L (5-15); CALCIUM 8.2 mg/dL (8.5-10.1); CHLORIDE 106 mmol/L (98-107); TRIGLYCERIDES 56 mg/dL (50-200)
[2018-10-28] MEDS: RIFAXIMIN 550 MG TABLET PO SCH ×2 (07:40→19:48)
[2018-10-28] MEDS: LACTOBACILLUS CHEW TABLET NG SCH ×3 (07:40→19:48)
[2018-10-28] MEDS: VANCOMYCIN 50 MG/ML ORAL SUSP NG SCH ×2 (07:40→19:48)
[2018-10-28] MEDS: SODIUM CHLORIDE FLUSH 10ML SYR IVF SCH ×2 (07:41→19:49)
[2018-10-28] MEDS ORDERED: SMOF TPN IV SCH (17:00)
[2018-10-28] MEDS ORDERED: [UNRECOGNIZED DRUG - OTHER] IV SCH (17:00)
[2018-10-28] MEDS ORDERED: FAT EMUL IV SCH (17:00)
[2018-10-28] MEDS ORDERED: DEXTROSE 70% IV SCH (17:00)
[2018-10-28] MEDS ORDERED: AMINO ACID 10% IV SCH (17:00)
[2018-10-28] MEDS: ENOXAPARIN 40 MG/0.4 ML SQ SCH (19:48)
[2018-10-29] MEDS: ALBUTEROL SULFATE 2.5 MG/3 ML NPPB SCH ×6 (02:36→22:25)
[2018-10-29] MEDS: INSULIN REGULAR, HUMAN 100 UNIT/ML 3ML VIAL LOW DOSE SS SQ-INSULIN SCH ×3 (06:00→22:00)
[2018-10-29 07:09] LABS: MEAN CORPUSCULAR HEMOGLOBIN 32.2 pg (27.5-34.5); MEAN CORPUSCULAR HGB CONC 31.8 g/dL (33.2-36.2); MEAN CORPUSCULAR VOLUME 101.3 fL (81-97); PLATELET COUNT 381 x10^3/uL (130-400); RED BLOOD COUNT 3.42 x10^6/uL (4.38-5.82)
[2018-10-29 07:15] LABS: ANION GAP 6 mmol/L (5-15); CHLORIDE 109 mmol/L (98-107); CREATININE 0.46 mg/dL (0.7-1.3); TRIGLYCERIDES 61 mg/dL (50-200)
[2018-10-29 07:35] LABS: BASOPHILS # (AUTO) 0.02 x10^3/uL (0-0.1); BASOPHILS % (AUTO) 0 % (0-1); EOSINOPHILS # (AUTO) 0.37 x10^3/uL (0-0.4); EOSINOPHILS % (AUTO) 3 % (1-7); LYMPHOCYTES # (AUTO) 1.43 x10^3/uL (1-3.4); LYMPHOCYTES % (AUTO) 11 % (22-44); MD SCAN; MONOCYTES # (AUTO) 1.78 x10^3/uL (0.2-0.8); MONOCYTES % (AUTO) 14 % (2-9); NEUTROPHILS # (AUTO) 9.56 x10^3/uL (1.8-6.8); NEUTROPHILS % (AUTO) 73 % (42-75)
[2018-10-29] MEDS: VANCOMYCIN 50 MG/ML ORAL SUSP NG SCH ×2 (09:41→21:15)
[2018-10-29] MEDS: RIFAXIMIN 550 MG TABLET PO SCH ×2 (09:41→21:15)
[2018-10-29] MEDS: LACTOBACILLUS CHEW TABLET NG SCH ×3 (09:41→21:14)
[2018-10-29] MEDS: SODIUM CHLORIDE FLUSH 10ML SYR IVF SCH ×2 (09:41→21:14)
[2018-10-29] MEDS: PROPOFOL 100 ML IV PRN ×3 (12:28→21:14)
[2018-10-29] MEDS ORDERED: AMINO ACID 10% IV SCH (17:00)
[2018-10-29] MEDS ORDERED: DEXTROSE 70% IV SCH (17:00)
[2018-10-29] MEDS ORDERED: FAT EMUL IV SCH (17:00)
[2018-10-29] MEDS ORDERED: SMOF TPN IV SCH (17:00)
[2018-10-29] MEDS ORDERED: [UNRECOGNIZED DRUG - OTHER] IV SCH (17:00)
[2018-10-29] MEDS: FILTER, DISP 1.2 MICRON FOR TPN/PVN IV PRN (17:17)
[2018-10-29] MEDS: ENOXAPARIN 40 MG/0.4 ML SQ SCH (21:15)
[2018-10-30] MEDS: ALBUTEROL SULFATE 2.5 MG/3 ML NPPB SCH ×6 (02:37→23:00)
[2018-10-30 06:07] LABS: BASOPHILS # (AUTO) 0.04 x10^3/uL (0-0.1); BASOPHILS % (AUTO) 0 % (0-1); EOSINOPHILS # (AUTO) 0.35 x10^3/uL (0-0.4); EOSINOPHILS % (AUTO) 3 % (1-7); LYMPHOCYTES # (AUTO) 1.06 x10^3/uL (1-3.4); LYMPHOCYTES % (AUTO) 8 % (22-44); MD NO; MEAN CORPUSCULAR HEMOGLOBIN 32.9 pg (27.5-34.5); MEAN CORPUSCULAR HGB CONC 32.1 g/dL (33.2-36.2); MEAN CORPUSCULAR VOLUME 102.5 fL (81-97); MEAN PLATELET VOLUME 8.4 fL (7.4-10.4); MONOCYTES # (AUTO) 1.42 x10^3/uL (0.2-0.8); MONOCYTES % (AUTO) 11 % (2-9); NEUTROPHILS # (AUTO) 9.85 x10^3/uL (1.8-6.8); NEUTROPHILS % (AUTO) 78 % (42-75); PLATELET COUNT 347 x10^3/uL (130-400); RED BLOOD COUNT 3.09 x10^6/uL (4.38-5.82); RED CELL DISTRIBUTION WIDTH 14.9 % (9.4-14.8)
[2018-10-30 06:14] LABS: ANION GAP 4 mmol/L (5-15); CALCIUM 8.1 mg/dL (8.5-10.1); CHLORIDE 108 mmol/L (98-107); CREATININE 0.34 mg/dL (0.7-1.3)
[2018-10-30] MEDS: INSULIN REGULAR, HUMAN 100 UNIT/ML 3ML VIAL LOW DOSE SS SQ-INSULIN SCH ×3 (06:49→21:52)
[2018-10-30] MEDS: SODIUM CHLORIDE FLUSH 10ML SYR IVF SCH ×2 (08:41→21:07)
[2018-10-30] MEDS: LACTOBACILLUS CHEW TABLET NG SCH ×3 (08:41→21:05)
[2018-10-30] MEDS: RIFAXIMIN 550 MG TABLET PO SCH ×2 (08:41→21:05)
[2018-10-30] MEDS: AcetaZOLAMIDE INJ 500 MG IVPush SCH (08:41)
[2018-10-30] MEDS: VANCOMYCIN 50 MG/ML ORAL SUSP NG SCH ×2 (08:42→21:06)
[2018-10-30] MEDS ORDERED: FAT EMUL IV SCH (17:00)
[2018-10-30] MEDS ORDERED: SMOF TPN IV SCH (17:00)
[2018-10-30] MEDS ORDERED: DEXTROSE 70% IV SCH (17:00)
[2018-10-30] MEDS ORDERED: AMINO ACID 10% IV SCH (17:00)
[2018-10-30] MEDS ORDERED: [UNRECOGNIZED DRUG - OTHER] IV SCH (17:00)
[2018-10-30] MEDS: FILTER, DISP 1.2 MICRON FOR TPN/PVN IV PRN (17:47)
[2018-10-30] MEDS: FENTANYL PF 100 MCG/2ML IVPush PRN ×2 (19:49→22:05)
[2018-10-30] MEDS: ENOXAPARIN 40 MG/0.4 ML SQ SCH (21:07)
[2018-10-31] MEDS: MIDAZOLAM 1 MG/ML, 2ML IVPush PRN ×2 (02:09→03:08)
[2018-10-31] MEDS: ALBUTEROL SULFATE 2.5 MG/3 ML NPPB SCH ×2 (02:40→06:50)
[2018-10-31] MEDS: FENTANYL PF 100 MCG/2ML IVPush PRN ×2 (03:08→05:14)
[2018-10-31 03:50] LABS: BASOPHILS # (AUTO) 0.02 x10^3/uL (0-0.1); BASOPHILS % (AUTO) 0 % (0-1); EOSINOPHILS # (AUTO) 0.64 x10^3/uL (0-0.4); EOSINOPHILS % (AUTO) 6 % (1-7); LYMPHOCYTES % (AUTO) 10 % (22-44); MD NO; MEAN CORPUSCULAR HEMOGLOBIN 32.8 pg (27.5-34.5); MEAN CORPUSCULAR HGB CONC 32.3 g/dL (33.2-36.2); MEAN CORPUSCULAR VOLUME 101.3 fL (81-97); MEAN PLATELET VOLUME 8.3 fL (7.4-10.4); MONOCYTES # (AUTO) 1.19 x10^3/uL (0.2-0.8); MONOCYTES % (AUTO) 10 % (2-9); NEUTROPHILS # (AUTO) 8.73 x10^3/uL (1.8-6.8); NEUTROPHILS % (AUTO) 74 % (42-75); PLATELET COUNT 343 x10^3/uL (130-400); RED BLOOD COUNT 2.95 x10^6/uL (4.38-5.82); RED CELL DISTRIBUTION WIDTH 14.8 % (9.4-14.8)
[2018-10-31 04:03] LABS: ANION GAP 4 mmol/L (5-15); CALCIUM 8.2 mg/dL (8.5-10.1); CHLORIDE 112 mmol/L (98-107); TRIGLYCERIDES 61 mg/dL (50-200)
[2018-10-31 04:11] VITALS: BP 105/71
[2018-10-31] MEDS: INSULIN REGULAR, HUMAN 100 UNIT/ML 3ML VIAL LOW DOSE SS SQ-INSULIN SCH ×3 (04:34→22:37)
[2018-10-31] MEDS: LACTOBACILLUS CHEW TABLET NG SCH ×3 (07:41→20:00)
[2018-10-31] MEDS: SODIUM CHLORIDE FLUSH 10ML SYR IVF SCH ×2 (07:41→20:00)
[2018-10-31] MEDS: RIFAXIMIN 550 MG TABLET PO SCH ×2 (07:42→20:00)
[2018-10-31] MEDS: AcetaZOLAMIDE INJ 500 MG IVPush SCH (07:42)
[2018-10-31] MEDS: VANCOMYCIN 50 MG/ML ORAL SUSP NG SCH ×2 (07:44→20:00)
[2018-10-31] MEDS: HALOPERIDOL 5 MG/ML IV PRN ×4 (10:51→23:47)
[2018-10-31] MEDS ORDERED: [UNRECOGNIZED DRUG - OTHER] IV SCH (17:00)
[2018-10-31] MEDS ORDERED: FAT EMUL IV SCH (17:00)
[2018-10-31] MEDS ORDERED: AMINO ACID 10% IV SCH (17:00)
[2018-10-31] MEDS ORDERED: DEXTROSE 70% IV SCH (17:00)
[2018-10-31] MEDS ORDERED: SMOF TPN IV SCH (17:00)
[2018-10-31] MEDS: FILTER, DISP 1.2 MICRON FOR TPN/PVN IV PRN (17:01)
[2018-10-31] MEDS: MORPHINE SULFATE 4 MG/ML, 1ML IVPush PRN (17:05)
[2018-10-31 19:00] VITALS: BP 138/89
[2018-10-31] MEDS: ENOXAPARIN 40 MG/0.4 ML SQ SCH (20:00)
[2018-10-31 20:11] VITALS: BP 135/85
[2018-11-01 04:17] VITALS: BP 132/85
[2018-11-01] MEDS: HALOPERIDOL 5 MG/ML IV PRN ×4 (04:17→23:35)
[2018-11-01] MEDS: INSULIN REGULAR, HUMAN 100 UNIT/ML 3ML VIAL LOW DOSE SS SQ-INSULIN SCH ×3 (05:10→22:23)
[2018-11-01 05:19] LABS: BASOPHILS # (AUTO) 0.02 x10^3/uL (0-0.1); BASOPHILS % (AUTO) 0 % (0-1); EOSINOPHILS # (AUTO) 0.42 x10^3/uL (0-0.4); EOSINOPHILS % (AUTO) 4 % (1-7); LYMPHOCYTES # (AUTO) 1.19 x10^3/uL (1-3.4); LYMPHOCYTES % (AUTO) 10 % (22-44); MD NO; MEAN CORPUSCULAR HEMOGLOBIN 32.8 pg (27.5-34.5); MEAN CORPUSCULAR HGB CONC 32.7 g/dL (33.2-36.2); MEAN CORPUSCULAR VOLUME 100.4 fL (81-97); MEAN PLATELET VOLUME 8.4 fL (7.4-10.4); MONOCYTES # (AUTO) 1.17 x10^3/uL (0.2-0.8); MONOCYTES % (AUTO) 10 % (2-9); NEUTROPHILS # (AUTO) 9.28 x10^3/uL (1.8-6.8); NEUTROPHILS % (AUTO) 77 % (42-75); PLATELET COUNT 308 x10^3/uL (130-400); RED BLOOD COUNT 3.02 x10^6/uL (4.38-5.82); RED CELL DISTRIBUTION WIDTH 14.8 % (9.4-14.8)
[2018-11-01 05:26] LABS: CHLORIDE 115 mmol/L (98-107)
[2018-11-01 05:34] LABS: ALANINE AMINOTRANSFERASE 85 U/L (12-78); ALBUMIN 1.6 g/dL (3.4-5.0); ALKALINE PHOSPHATASE 178 U/L (45-117); ANION GAP 8 mmol/L (5-15); BILIRUBIN,TOTAL 0.6 mg/dL (0.2-1.0); CALCIUM 8.3 mg/dL (8.5-10.1); CREATININE 0.33 mg/dL (0.7-1.3); TOTAL PROTEIN 5.2 g/dL (6.4-8.2)
[2018-11-01] MEDS ORDERED: MAGNESIUM SULFATE PMX 2GM/50ML 50 ML IV ONE (09:00)
[2018-11-01] MEDS: SODIUM CHLORIDE FLUSH 10ML SYR IVF SCH ×2 (09:00→22:21)
[2018-11-01 09:10] LABS: CLOSTRIDIUM DIFFICILE ANTIGEN NEGATIVE; CLOSTRIDIUM DIFFICILE TOXIN NEGATIVE (Negative)
[2018-11-01] MEDS: LACTOBACILLUS CHEW TABLET NG SCH ×3 (09:33→22:21)
[2018-11-01] MEDS: RIFAXIMIN 550 MG TABLET PO SCH ×2 (09:33→22:22)
[2018-11-01] MEDS: VANCOMYCIN 50 MG/ML ORAL SUSP NG SCH ×2 (09:44→22:22)
[2018-11-01] MEDS ORDERED: LIDOCAINE 2%, 6 ML JEL.PF.APP MM ONE (16:49)
[2018-11-01] MEDS ORDERED: BENZOCAINE 20% SPRAY 0.5ML ONE (16:50)
[2018-11-01] MEDS ORDERED: DEXTROSE 70% IV SCH (17:00)
[2018-11-01] MEDS ORDERED: [UNRECOGNIZED DRUG - OTHER] IV SCH (17:00)
[2018-11-01] MEDS ORDERED: AMINO ACID 10% IV SCH (17:00)
[2018-11-01] MEDS ORDERED: SMOF TPN IV SCH (17:00)
[2018-11-01] MEDS ORDERED: FAT EMUL IV SCH (17:00)
[2018-11-01] MEDS: MORPHINE SULFATE 4 MG/ML, 1ML IVPush PRN (17:01)
[2018-11-01] MEDS: FILTER, DISP 1.2 MICRON FOR TPN/PVN IV PRN (17:51)
[2018-11-01] MEDS ORDERED: RISPERIDONE 0.5 MG TABLET PO SCH (21:00)
[2018-11-01] MEDS: ENOXAPARIN 40 MG/0.4 ML SQ SCH (22:23)
[2018-11-02 04:00] VITALS: BP 130/86
[2018-11-02] MEDS: HALOPERIDOL 5 MG/ML IV PRN ×3 (05:29→23:03)
[2018-11-02] MEDS: INSULIN REGULAR, HUMAN 100 UNIT/ML 3ML VIAL LOW DOSE SS SQ-INSULIN SCH ×3 (06:18→21:46)
[2018-11-02] MEDS: RIFAXIMIN 550 MG TABLET PO SCH ×2 (08:57→21:36)
[2018-11-02] MEDS: LACTOBACILLUS CHEW TABLET NG SCH ×3 (08:57→21:36)
[2018-11-02] MEDS: CHOLESTYRAMINE LIGHT 4GM PACKET PO SCH (08:57)
[2018-11-02] MEDS: RISPERIDONE 0.5 MG TABLET PO SCH ×2 (08:57→21:36)
[2018-11-02] MEDS: VANCOMYCIN 50 MG/ML ORAL SUSP NG SCH ×2 (08:58→21:37)
[2018-11-02] MEDS: SODIUM CHLORIDE FLUSH 10ML SYR IVF SCH ×2 (09:00→21:35)
[2018-11-02 12:01] LABS: BASOPHILS # (AUTO) 0.02 x10^3/uL (0-0.1); BASOPHILS % (AUTO) 0 % (0-1); EOSINOPHILS % (AUTO) 5 % (1-7); HEMOGRAM NOTE RECHECKED; LYMPHOCYTES # (AUTO) 1.07 x10^3/uL (1-3.4); LYMPHOCYTES % (AUTO) 12 % (22-44); MD NO; MEAN CORPUSCULAR HEMOGLOBIN 32.8 pg (27.5-34.5); MEAN CORPUSCULAR HGB CONC 32.5 g/dL (33.2-36.2); MEAN CORPUSCULAR VOLUME 100.9 fL (81-97); MEAN PLATELET VOLUME 8.2 fL (7.4-10.4); MONOCYTES # (AUTO) 0.84 x10^3/uL (0.2-0.8); MONOCYTES % (AUTO) 9 % (2-9); NEUTROPHILS # (AUTO) 6.63 x10^3/uL (1.8-6.8); NEUTROPHILS % (AUTO) 74 % (42-75); PLATELET COUNT 289 x10^3/uL (130-400); RED BLOOD COUNT 3.02 x10^6/uL (4.38-5.82); RED CELL DISTRIBUTION WIDTH 14.9 % (9.4-14.8)
[2018-11-02 12:02] LABS: CHLORIDE 112 mmol/L (98-107)
[2018-11-02 12:12] LABS: ALANINE AMINOTRANSFERASE 83 U/L (12-78); ALBUMIN 1.6 g/dL (3.4-5.0); ALKALINE PHOSPHATASE 170 U/L (45-117); ANION GAP 7 mmol/L (5-15); BILIRUBIN,TOTAL 0.5 mg/dL (0.2-1.0); CALCIUM 8.2 mg/dL (8.5-10.1); CREATININE 0.32 mg/dL (0.7-1.3); TOTAL PROTEIN 5.1 g/dL (6.4-8.2)
[2018-11-02] MEDS ORDERED: FAT EMUL IV SCH (17:00)
[2018-11-02] MEDS ORDERED: AMINO ACID 10% IV SCH (17:00)
[2018-11-02] MEDS ORDERED: [UNRECOGNIZED DRUG - OTHER] IV SCH (17:00)
[2018-11-02] MEDS ORDERED: DEXTROSE 70% IV SCH (17:00)
[2018-11-02] MEDS ORDERED: SMOF TPN IV SCH (17:00)
[2018-11-02] MEDS: ENOXAPARIN 40 MG/0.4 ML SQ SCH (21:36)
[2018-11-03 04:00] VITALS: BP 130/83
[2018-11-03 04:31] LABS: BASOPHILS # (AUTO) 0.05 x10^3/uL (0-0.1); BASOPHILS % (AUTO) 1 % (0-1); EOSINOPHILS % (AUTO) 5 % (1-7); LYMPHOCYTES # (AUTO) 1.23 x10^3/uL (1-3.4); LYMPHOCYTES % (AUTO) 13 % (22-44); MD NO; MEAN CORPUSCULAR HEMOGLOBIN 31.4 pg (27.5-34.5); MEAN CORPUSCULAR VOLUME 98.3 fL (81-97); MEAN PLATELET VOLUME 8.2 fL (7.4-10.4); MONOCYTES % (AUTO) 8 % (2-9); NEUTROPHILS # (AUTO) 7.27 x10^3/uL (1.8-6.8); NEUTROPHILS % (AUTO) 74 % (42-75); PLATELET COUNT 284 x10^3/uL (130-400); RED CELL DISTRIBUTION WIDTH 14.6 % (9.4-14.8)
[2018-11-03 04:46] LABS: ANION GAP 8 mmol/L (5-15); CALCIUM 8.2 mg/dL (8.5-10.1); CHLORIDE 111 mmol/L (98-107); CREATININE 0.34 mg/dL (0.7-1.3)
[2018-11-03] MEDS: INSULIN REGULAR, HUMAN 100 UNIT/ML 3ML VIAL LOW DOSE SS SQ-INSULIN SCH (06:20)
[2018-11-03] MEDS: LACTOBACILLUS CHEW TABLET NG SCH ×3 (07:46→22:50)
[2018-11-03] MEDS: RIFAXIMIN 550 MG TABLET PO SCH ×2 (07:46→22:50)
[2018-11-03] MEDS: RISPERIDONE 0.5 MG TABLET PO SCH (07:46)
[2018-11-03] MEDS: VANCOMYCIN 50 MG/ML ORAL SUSP NG SCH ×2 (07:46→22:49)
[2018-11-03] MEDS ORDERED: DIPHENOXYLATE/ATROPINE TABLET PO PRN (09:00)
[2018-11-03] MEDS: SODIUM CHLORIDE FLUSH 10ML SYR IVF SCH ×2 (09:00→21:00)
[2018-11-03] MEDS: CHOLESTYRAMINE LIGHT 4GM PACKET PO SCH (09:00)
[2018-11-03] MEDS ORDERED: ACETAMINOPHEN 650 MG/20.3 ML UDC PO PRN (12:01)
[2018-11-03] MEDS: METOPROLOL TARTRATE 25 MG TABLET NG SCH ×2 (12:19→17:46)
[2018-11-03] MEDS ORDERED: DIPHENOXYLATE/ATROPINE ORAL SOL PO PRN (12:30)
[2018-11-03] MEDS ORDERED: DOCUSATE 50 MG/5 ML, 10ML UDC PO PRN (12:30)
[2018-11-03] MEDS: HALOPERIDOL 5 MG/ML IV PRN ×2 (15:48→22:50)
[2018-11-03] MEDS ORDERED: FAT EMUL IV SCH (17:00)
[2018-11-03] MEDS ORDERED: FILTER, DISP 1.2 MICRON FOR TPN/PVN IV PRN (17:00)
[2018-11-03] MEDS ORDERED: DEXTROSE 70% IV SCH (17:00)
[2018-11-03] MEDS ORDERED: AMINO ACID 10% IV SCH (17:00)
[2018-11-03] MEDS ORDERED: [UNRECOGNIZED DRUG - OTHER] IV SCH (17:00)
[2018-11-03] MEDS ORDERED: SMOF TPN IV SCH (17:00)
[2018-11-03] MEDS: ENOXAPARIN 40 MG/0.4 ML SQ SCH (22:51)
[2018-11-03] MEDS: RISPERIDONE 1 MG/ML ORAL SOLN PO SCH (23:34)
[2018-11-04 04:00] VITALS: BP 112/83
[2018-11-04] MEDS: METOPROLOL TARTRATE 25 MG TABLET NG SCH ×2 (05:35→17:01)
[2018-11-04 05:48] LABS: ANION GAP 6 mmol/L (5-15); CALCIUM 8.2 mg/dL (8.5-10.1); CHLORIDE 109 mmol/L (98-107)
[2018-11-04 05:49] LABS: CREATININE 0.37 mg/dL (0.7-1.3)
[2018-11-04] MEDS ORDERED: INSULIN REGULAR LOW DOSE QDAY SQ-INSULIN SCH (09:00)
[2018-11-04] MEDS: SODIUM CHLORIDE FLUSH 10ML SYR IVF SCH ×2 (09:15→21:42)
[2018-11-04] MEDS: RISPERIDONE 1 MG/ML ORAL SOLN PO SCH ×2 (09:16→21:43)
[2018-11-04] MEDS: RIFAXIMIN 550 MG TABLET PO SCH ×2 (09:16→21:43)
[2018-11-04] MEDS: LACTOBACILLUS CHEW TABLET NG SCH ×3 (09:16→21:43)
[2018-11-04] MEDS: CHOLESTYRAMINE LIGHT 4GM PACKET PO SCH (12:02)
[2018-11-04] MEDS ORDERED: ALBUTEROL/IPRATROPIUM 2.5MG/0.5MG, 3 ML NPPB SCH (14:00)
--- NOTE | 2018-11-04 15:05 | NUR ---
ENDOCRINOLOGY NURSE REC: NPO single ice chips ok with RN Addendum: 11/04/18 at 1505 by ANTONIO ROSSI Amended: Links added.
[2018-11-04 15:46] VITALS: BP 104/71
[2018-11-04] MEDS: HALOPERIDOL 5 MG/ML IV PRN (17:08)
[2018-11-04] MEDS: ALBUTEROL/IPRATROPIUM 2.5MG/0.5MG, 3 ML NPPB SCH ×2 (18:50→22:30)
[2018-11-04 20:49] VITALS: BP 115/80
[2018-11-04] MEDS: ENOXAPARIN 40 MG/0.4 ML SQ SCH (21:43)
[2018-11-05] VITALS (7 sets, daily range): BP systolic 101–130; BP diastolic 64–81
[2018-11-05] MEDS: METOPROLOL TARTRATE 25 MG TABLET NG SCH ×2 (05:09→17:23)
[2018-11-05 05:28] LABS: BASOPHILS # (AUTO) 0.01 x10^3/uL (0-0.1); BASOPHILS % (AUTO) 0 % (0-1); EOSINOPHILS # (AUTO) 0.56 x10^3/uL (0-0.4); EOSINOPHILS % (AUTO) 5 % (1-7); LYMPHOCYTES # (AUTO) 1.72 x10^3/uL (1-3.4); LYMPHOCYTES % (AUTO) 17 % (22-44); MD NO; MEAN CORPUSCULAR HEMOGLOBIN 32.2 pg (27.5-34.5); MEAN CORPUSCULAR VOLUME 100.5 fL (81-97); MEAN PLATELET VOLUME 8.9 fL (7.4-10.4); MONOCYTES # (AUTO) 0.99 x10^3/uL (0.2-0.8); MONOCYTES % (AUTO) 10 % (2-9); NEUTROPHILS # (AUTO) 7.11 x10^3/uL (1.8-6.8); NEUTROPHILS % (AUTO) 69 % (42-75); PLATELET COUNT 265 x10^3/uL (130-400); RED BLOOD COUNT 3.19 x10^6/uL (4.38-5.82); RED CELL DISTRIBUTION WIDTH 14.9 % (9.4-14.8)
[2018-11-05 05:38] LABS: ALBUMIN 1.9 g/dL (3.4-5.0); ANION GAP 7 mmol/L (5-15); CALCIUM 8.2 mg/dL (8.5-10.1); CHLORIDE 108 mmol/L (98-107)
[2018-11-05 05:42] LABS: ALANINE AMINOTRANSFERASE 93 U/L (12-78); ALKALINE PHOSPHATASE 188 U/L (45-117); BILIRUBIN,TOTAL 0.6 mg/dL (0.2-1.0); TOTAL PROTEIN 5.5 g/dL (6.4-8.2)
[2018-11-05] MEDS: ALBUTEROL/IPRATROPIUM 2.5MG/0.5MG, 3 ML NPPB SCH ×3 (06:15→14:00)
[2018-11-05] MEDS: LACTOBACILLUS CHEW TABLET NG SCH ×4 (08:22→21:56)
[2018-11-05] MEDS: RISPERIDONE 1 MG/ML ORAL SOLN PO SCH (08:22)
[2018-11-05] MEDS: RIFAXIMIN 550 MG TABLET PO SCH ×3 (08:22→22:04)
[2018-11-05] MEDS: SODIUM CHLORIDE FLUSH 10ML SYR IVF SCH ×2 (08:22→21:56)
[2018-11-05 12:49] LABS: CLOSTRIDIUM DIFFICILE ANTIGEN NEGATIVE; CLOSTRIDIUM DIFFICILE TOXIN NEGATIVE (Negative)
[2018-11-05] MEDS ORDERED: PANCRELIPASE 24,000 CAPSULE.DR PO SCH (13:30)
[2018-11-05] MEDS: CHOLESTYRAMINE LIGHT 4GM PACKET PO SCH (14:20)
[2018-11-05] MEDS: LIPASE/PROTEASE/AMYLASE TAB PO SCH ×2 (15:44→21:00)
[2018-11-05] MEDS ORDERED: ALBUTEROL/IPRATROPIUM 2.5MG/0.5MG, 3 ML NPPB PRN (20:00)
[2018-11-05] MEDS: ENOXAPARIN 40 MG/0.4 ML SQ SCH ×2 (21:00→21:51)
[2018-11-06 01:56] VITALS: BP 123/81
[2018-11-06] MEDS ORDERED: ESOMEPRAZOLE 40 MG IV IVPush SCH (03:30)
[2018-11-06 05:11] LABS: BASOPHILS # (AUTO) 0.02 x10^3/uL (0-0.1); BASOPHILS % (AUTO) 0 % (0-1); EOSINOPHILS % (AUTO) 1 % (1-7); LYMPHOCYTES # (AUTO) 1.37 x10^3/uL (1-3.4); LYMPHOCYTES % (AUTO) 11 % (22-44); MD NO; MEAN CORPUSCULAR HEMOGLOBIN 32.2 pg (27.5-34.5); MEAN CORPUSCULAR HGB CONC 32.5 g/dL (33.2-36.2); MEAN CORPUSCULAR VOLUME 99.1 fL (81-97); MONOCYTES # (AUTO) 1.01 x10^3/uL (0.2-0.8); MONOCYTES % (AUTO) 8 % (2-9); NEUTROPHILS % (AUTO) 80 % (42-75); PLATELET COUNT 316 x10^3/uL (130-400); RED BLOOD COUNT 3.46 x10^6/uL (4.38-5.82); RED CELL DISTRIBUTION WIDTH 15.1 % (9.4-14.8)
[2018-11-06] MEDS: LIPASE/PROTEASE/AMYLASE TAB PO SCH ×4 (05:34→22:29)
[2018-11-06] MEDS: METOPROLOL TARTRATE 25 MG TABLET NG SCH ×2 (05:37→17:55)
[2018-11-06 06:56] VITALS: BP 111/71
[2018-11-06] MEDS: SODIUM CHLORIDE FLUSH 10ML SYR IVF SCH ×2 (08:59→22:31)
[2018-11-06] MEDS: LACTOBACILLUS CHEW TABLET NG SCH ×3 (08:59→22:29)
[2018-11-06] MEDS: RIFAXIMIN 550 MG TABLET PO SCH ×2 (09:10→22:29)
[2018-11-06] MEDS: CHOLESTYRAMINE LIGHT 4GM PACKET PO SCH (12:46)
[2018-11-06 13:26] VITALS: BP 136/88
[2018-11-06 19:25] VITALS: BP 128/85
[2018-11-06] MEDS: ENOXAPARIN 40 MG/0.4 ML SQ SCH (22:30)
[2018-11-07 00:12] VITALS: BP 128/87
[2018-11-07] MEDS: HALOPERIDOL 5 MG/ML IV PRN (00:44)
[2018-11-07] MEDS: LIPASE/PROTEASE/AMYLASE TAB PO SCH ×4 (04:37→22:02)
[2018-11-07 06:02] VITALS: BP 131/87
[2018-11-07] MEDS: METOPROLOL TARTRATE 25 MG TABLET NG SCH ×2 (06:14→19:12)
[2018-11-07 07:05] VITALS: BP 109/74
[2018-11-07] MEDS: RIFAXIMIN 550 MG TABLET PO SCH ×2 (09:36→22:02)
[2018-11-07] MEDS: LACTOBACILLUS CHEW TABLET NG SCH ×3 (09:36→22:02)
[2018-11-07] MEDS: SODIUM CHLORIDE FLUSH 10ML SYR IVF SCH ×2 (09:37→21:00)
[2018-11-07] MEDS: CHOLESTYRAMINE LIGHT 4GM PACKET PO SCH (12:01)
[2018-11-07 13:30] VITALS: BP 132/86
[2018-11-07 18:36] VITALS: BP 129/86
[2018-11-07] MEDS: ENOXAPARIN 40 MG/0.4 ML SQ SCH (22:02)
[2018-11-08 00:23] VITALS: BP 131/84
[2018-11-08] MEDS ORDERED: HALOPERIDOL 2 MG/ML ORAL SOL PO PRN (02:00)
[2018-11-08] MEDS: LIPASE/PROTEASE/AMYLASE TAB PO SCH ×4 (04:57→21:08)
[2018-11-08 05:39] LABS: BASOPHILS # (AUTO) 0.02 x10^3/uL (0-0.1); BASOPHILS % (AUTO) 0 % (0-1); EOSINOPHILS # (AUTO) 0.17 x10^3/uL (0-0.4); EOSINOPHILS % (AUTO) 2 % (1-7); LYMPHOCYTES # (AUTO) 1.55 x10^3/uL (1-3.4); LYMPHOCYTES % (AUTO) 18 % (22-44); MD NO; MEAN CORPUSCULAR HEMOGLOBIN 31.8 pg (27.5-34.5); MEAN CORPUSCULAR HGB CONC 32.2 g/dL (33.2-36.2); MEAN CORPUSCULAR VOLUME 98.9 fL (81-97); MEAN PLATELET VOLUME 8.4 fL (7.4-10.4); MONOCYTES # (AUTO) 0.93 x10^3/uL (0.2-0.8); MONOCYTES % (AUTO) 11 % (2-9); NEUTROPHILS # (AUTO) 6.11 x10^3/uL (1.8-6.8); NEUTROPHILS % (AUTO) 70 % (42-75); PLATELET COUNT 291 x10^3/uL (130-400); RED BLOOD COUNT 3.46 x10^6/uL (4.38-5.82); RED CELL DISTRIBUTION WIDTH 14.8 % (9.4-14.8)
[2018-11-08 05:46] LABS: ALANINE AMINOTRANSFERASE 71 U/L (12-78); ALBUMIN 2.1 g/dL (3.4-5.0); ANION GAP 7 mmol/L (5-15); CALCIUM 8.4 mg/dL (8.5-10.1); CHLORIDE 110 mmol/L (98-107)
[2018-11-08 05:49] LABS: ALKALINE PHOSPHATASE 162 U/L (45-117); CREATININE 0.51 mg/dL (0.7-1.3); TOTAL PROTEIN 5.9 g/dL (6.4-8.2)
[2018-11-08] MEDS: METOPROLOL TARTRATE 25 MG TABLET NG SCH ×2 (06:53→18:08)
[2018-11-08 06:54] VITALS: BP 135/85
[2018-11-08 08:37] VITALS: BP 120/80
[2018-11-08] MEDS: RIFAXIMIN 550 MG TABLET PO SCH ×2 (11:08→21:08)
[2018-11-08] MEDS: LACTOBACILLUS CHEW TABLET NG SCH ×3 (11:09→21:07)
[2018-11-08] MEDS: CHOLESTYRAMINE LIGHT 4GM PACKET PO SCH (11:10)
--- NOTE | 2018-11-08 11:35 | NUR ---
RFID TECHNICIAN REC: GROUND/NTL Addendum: 11/08/18 at [address] Amended: Links added.
[2018-11-08 13:53] VITALS: BP 132/87
[2018-11-08] MEDS: SODIUM CHLORIDE FLUSH 10ML SYR IVF SCH ×2 (18:14→21:00)
[2018-11-08 19:39] VITALS: BP 139/92
[2018-11-08] MEDS: ENOXAPARIN 40 MG/0.4 ML SQ SCH (21:08)
[2018-11-09 01:28] VITALS: BP 127/88
[2018-11-09] MEDS: LIPASE/PROTEASE/AMYLASE TAB PO SCH ×4 (04:00→21:40)
[2018-11-09] MEDS ORDERED: HALOPERIDOL 5 MG/ML IM ONE (04:30)
[2018-11-09] MEDS: METOPROLOL TARTRATE 25 MG TABLET NG SCH ×2 (06:00→18:00)
[2018-11-09 06:36] VITALS: BP 126/88
[2018-11-09 08:59] LABS: FIO2 RA %
[2018-11-09 09:00] LABS: BASOPHILS # (AUTO) 0.02 x10^3/uL (0-0.1); BASOPHILS % (AUTO) 0 % (0-1); EOSINOPHILS # (AUTO) 0.14 x10^3/uL (0-0.4); EOSINOPHILS % (AUTO) 2 % (1-7); LYMPHOCYTES % (AUTO) 21 % (22-44); MD NO; MEAN CORPUSCULAR HEMOGLOBIN 30.9 pg (27.5-34.5); MEAN CORPUSCULAR HGB CONC 31.8 g/dL (33.2-36.2); MEAN CORPUSCULAR VOLUME 97.5 fL (81-97); MONOCYTES # (AUTO) 0.93 x10^3/uL (0.2-0.8); MONOCYTES % (AUTO) 12 % (2-9); NEUTROPHILS # (AUTO) 5.18 x10^3/uL (1.8-6.8); NEUTROPHILS % (AUTO) 65 % (42-75); PLATELET COUNT 323 x10^3/uL (130-400); RED BLOOD COUNT 3.72 x10^6/uL (4.38-5.82); RED CELL DISTRIBUTION WIDTH 14.4 % (9.4-14.8)
[2018-11-09] MEDS: LACTOBACILLUS CHEW TABLET NG SCH ×3 (09:00→21:00)
[2018-11-09] MEDS: RIFAXIMIN 550 MG TABLET PO SCH ×2 (09:00→21:00)
[2018-11-09] MEDS: CHOLESTYRAMINE LIGHT 4GM PACKET PO SCH (09:00)
[2018-11-09] MEDS: SODIUM CHLORIDE FLUSH 10ML SYR IVF SCH ×2 (09:00→21:00)
[2018-11-09 09:14] LABS: ALANINE AMINOTRANSFERASE 69 U/L (12-78); ALBUMIN 2.4 g/dL (3.4-5.0); ANION GAP 12 mmol/L (5-15); CALCIUM 8.8 mg/dL (8.5-10.1); CHLORIDE 115 mmol/L (98-107); CREATININE 0.54 mg/dL (0.7-1.3)
[2018-11-09 09:16] LABS: ALKALINE PHOSPHATASE 167 U/L (45-117); BILIRUBIN,TOTAL 0.7 mg/dL (0.2-1.0); TOTAL PROTEIN 6.3 g/dL (6.4-8.2)
[2018-11-09] MEDS: ENOXAPARIN 40 MG/0.4 ML SQ SCH (21:00)
[2018-11-09 21:25] VITALS: BP 130/92
[2018-11-10 00:10] VITALS: BP 125/82
[2018-11-10] MEDS: LIPASE/PROTEASE/AMYLASE TAB PO SCH ×4 (03:59→22:08)
[2018-11-10 05:43] VITALS: BP 143/91
[2018-11-10] MEDS: METOPROLOL TARTRATE 25 MG TABLET NG SCH ×2 (05:46→16:25)
[2018-11-10 07:51] LABS: CRYPTOSPORIDIUM ANTIGEN Negative (Negative)
[2018-11-10 07:58] VITALS: BP 127/87
[2018-11-10 08:25] LABS: BASOPHILS # (AUTO) 0.02 x10^3/uL (0-0.1); BASOPHILS % (AUTO) 0 % (0-1); EOSINOPHILS # (AUTO) 0.21 x10^3/uL (0-0.4); EOSINOPHILS % (AUTO) 3 % (1-7); LYMPHOCYTES # (AUTO) 1.58 x10^3/uL (1-3.4); LYMPHOCYTES % (AUTO) 19 % (22-44); MD NO; MEAN CORPUSCULAR HEMOGLOBIN 30.8 pg (27.5-34.5); MEAN CORPUSCULAR HGB CONC 31.5 g/dL (33.2-36.2); MEAN CORPUSCULAR VOLUME 97.6 fL (81-97); MEAN PLATELET VOLUME 7.9 fL (7.4-10.4); MONOCYTES # (AUTO) 0.86 x10^3/uL (0.2-0.8); MONOCYTES % (AUTO) 11 % (2-9); NEUTROPHILS # (AUTO) 5.46 x10^3/uL (1.8-6.8); NEUTROPHILS % (AUTO) 67 % (42-75); PLATELET COUNT 340 x10^3/uL (130-400); RED BLOOD COUNT 3.94 x10^6/uL (4.38-5.82); RED CELL DISTRIBUTION WIDTH 14.4 % (9.4-14.8)
[2018-11-10 08:33] LABS: ALBUMIN 2.5 g/dL (3.4-5.0); ANION GAP 10 mmol/L (5-15); CALCIUM 8.7 mg/dL (8.5-10.1); CHLORIDE 116 mmol/L (98-107)
[2018-11-10 08:37] LABS: ALANINE AMINOTRANSFERASE 73 U/L (12-78); ALKALINE PHOSPHATASE 168 U/L (45-117); BILIRUBIN,TOTAL 0.6 mg/dL (0.2-1.0); CREATININE 0.81 mg/dL (0.7-1.3); TOTAL PROTEIN 6.6 g/dL (6.4-8.2)
[2018-11-10] MEDS: RIFAXIMIN 550 MG TABLET PO SCH ×2 (09:01→22:08)
[2018-11-10] MEDS: LACTOBACILLUS CHEW TABLET NG SCH ×3 (09:01→22:08)
[2018-11-10] MEDS: CHOLESTYRAMINE LIGHT 4GM PACKET PO SCH (09:02)
[2018-11-10] MEDS: SODIUM CHLORIDE FLUSH 10ML SYR IVF SCH ×2 (09:03→22:09)
[2018-11-10] MEDS: DIPHENOXYLATE/ATROPINE ORAL SOL PO SCH ×3 (12:26→22:08)
[2018-11-10 13:59] VITALS: BP 117/82
[2018-11-10 20:17] VITALS: BP 119/79
[2018-11-10] MEDS: ENOXAPARIN 40 MG/0.4 ML SQ SCH (22:08)
[2018-11-11 00:25] VITALS: BP 110/70
[2018-11-11] MEDS: LIPASE/PROTEASE/AMYLASE TAB PO SCH ×5 (05:03→23:00)
[2018-11-11] MEDS: DIPHENOXYLATE/ATROPINE ORAL SOL PO SCH ×4 (05:03→23:00)
[2018-11-11] MEDS: METOPROLOL TARTRATE 25 MG TABLET NG SCH ×2 (05:03→16:57)
[2018-11-11 06:24] LABS: BASOPHILS # (AUTO) 0.02 x10^3/uL (0-0.1); BASOPHILS % (AUTO) 0 % (0-1); EOSINOPHILS # (AUTO) 0.39 x10^3/uL (0-0.4); EOSINOPHILS % (AUTO) 5 % (1-7); LYMPHOCYTES # (AUTO) 1.87 x10^3/uL (1-3.4); LYMPHOCYTES % (AUTO) 23 % (22-44); MD NO; MEAN CORPUSCULAR HEMOGLOBIN 30.6 pg (27.5-34.5); MEAN CORPUSCULAR HGB CONC 31.5 g/dL (33.2-36.2); MEAN CORPUSCULAR VOLUME 97.3 fL (81-97); MEAN PLATELET VOLUME 8.1 fL (7.4-10.4); MONOCYTES # (AUTO) 0.77 x10^3/uL (0.2-0.8); MONOCYTES % (AUTO) 9 % (2-9); NEUTROPHILS % (AUTO) 64 % (42-75); PLATELET COUNT 313 x10^3/uL (130-400); RED BLOOD COUNT 4.19 x10^6/uL (4.38-5.82)
[2018-11-11 06:35] LABS: ALBUMIN 2.6 g/dL (3.4-5.0); ANION GAP 10 mmol/L (5-15); CALCIUM 8.9 mg/dL (8.5-10.1); CHLORIDE 117 mmol/L (98-107)
[2018-11-11 06:39] LABS: ALANINE AMINOTRANSFERASE 77 U/L (12-78); ALKALINE PHOSPHATASE 168 U/L (45-117); CREATININE 0.87 mg/dL (0.7-1.3); TOTAL PROTEIN 6.6 g/dL (6.4-8.2)
[2018-11-11 07:56] VITALS: BP 108/72
[2018-11-11] MEDS: SODIUM CHLORIDE FLUSH 10ML SYR IVF SCH ×2 (08:16→21:00)
[2018-11-11] MEDS: CHOLESTYRAMINE LIGHT 4GM PACKET PO SCH ×2 (08:16→08:20)
[2018-11-11] MEDS: LACTOBACILLUS CHEW TABLET NG SCH ×4 (08:16→23:00)
[2018-11-11] MEDS: RIFAXIMIN 550 MG TABLET PO SCH ×3 (08:16→23:00)
[2018-11-11] MEDS ORDERED: POTASSIUM CHLORIDE 20 MEQ TAB.ER.PRT PO ONE (13:00)
[2018-11-11 13:56] VITALS: BP 123/87
[2018-11-11 21:37] VITALS: BP 125/88
[2018-11-11] MEDS: ENOXAPARIN 40 MG/0.4 ML SQ SCH (23:02)
[2018-11-12 01:32] VITALS: BP 120/82
[2018-11-12 04:33] VITALS: BP 123/82
[2018-11-12] MEDS: METOPROLOL TARTRATE 25 MG TABLET NG SCH ×2 (04:34→17:33)
[2018-11-12] MEDS: LIPASE/PROTEASE/AMYLASE TAB PO SCH ×4 (04:34→23:43)
[2018-11-12] MEDS: DIPHENOXYLATE/ATROPINE ORAL SOL PO SCH ×4 (04:35→23:43)
[2018-11-12 04:45] LABS: BASOPHILS # (AUTO) 0.04 x10^3/uL (0-0.1); BASOPHILS % (AUTO) 1 % (0-1); EOSINOPHILS # (AUTO) 0.41 x10^3/uL (0-0.4); EOSINOPHILS % (AUTO) 5 % (1-7); LYMPHOCYTES # (AUTO) 2.12 x10^3/uL (1-3.4); LYMPHOCYTES % (AUTO) 23 % (22-44); MD NO; MEAN CORPUSCULAR HEMOGLOBIN 30.6 pg (27.5-34.5); MEAN CORPUSCULAR HGB CONC 31.5 g/dL (33.2-36.2); MEAN CORPUSCULAR VOLUME 97.3 fL (81-97); MEAN PLATELET VOLUME 8.2 fL (7.4-10.4); MONOCYTES # (AUTO) 0.94 x10^3/uL (0.2-0.8); MONOCYTES % (AUTO) 10 % (2-9); NEUTROPHILS % (AUTO) 62 % (42-75); PLATELET COUNT 331 x10^3/uL (130-400); RED BLOOD COUNT 4.04 x10^6/uL (4.38-5.82); RED CELL DISTRIBUTION WIDTH 14.6 % (9.4-14.8)
[2018-11-12 04:56] LABS: ALANINE AMINOTRANSFERASE 76 U/L (12-78); ALBUMIN 2.6 g/dL (3.4-5.0); ANION GAP 10 mmol/L (5-15); CHLORIDE 121 mmol/L (98-107); CREATININE 0.76 mg/dL (0.7-1.3)
[2018-11-12 04:58] LABS: ALKALINE PHOSPHATASE 156 U/L (45-117); BILIRUBIN,TOTAL 0.7 mg/dL (0.2-1.0); TOTAL PROTEIN 6.4 g/dL (6.4-8.2)
[2018-11-12 07:09] VITALS: BP 124/79
[2018-11-12] MEDS: CHOLESTYRAMINE LIGHT 4GM PACKET PO SCH (09:19)
[2018-11-12] MEDS: LACTOBACILLUS CHEW TABLET NG SCH ×3 (09:20→19:52)
[2018-11-12] MEDS: SODIUM CHLORIDE FLUSH 10ML SYR IVF SCH ×2 (09:20→20:27)
[2018-11-12] MEDS: RIFAXIMIN 550 MG TABLET PO SCH ×2 (09:20→19:52)
[2018-11-12 15:32] VITALS: BP 113/76
[2018-11-12] MEDS: ENOXAPARIN 40 MG/0.4 ML SQ SCH (19:53)
[2018-11-12 21:45] VITALS: BP 127/87
[2018-11-13 00:28] VITALS: BP 128/90
[2018-11-13 05:57] LABS: BASOPHILS # (AUTO) 0.03 x10^3/uL (0-0.1); BASOPHILS % (AUTO) 0 % (0-1); EOSINOPHILS # (AUTO) 0.35 x10^3/uL (0-0.4); EOSINOPHILS % (AUTO) 4 % (1-7); LYMPHOCYTES # (AUTO) 1.99 x10^3/uL (1-3.4); LYMPHOCYTES % (AUTO) 24 % (22-44); MD NO; MEAN CORPUSCULAR HEMOGLOBIN 30.7 pg (27.5-34.5); MEAN CORPUSCULAR HGB CONC 31.6 g/dL (33.2-36.2); MEAN CORPUSCULAR VOLUME 97.4 fL (81-97); MEAN PLATELET VOLUME 8.1 fL (7.4-10.4); MONOCYTES # (AUTO) 0.81 x10^3/uL (0.2-0.8); MONOCYTES % (AUTO) 10 % (2-9); NEUTROPHILS % (AUTO) 62 % (42-75); PLATELET COUNT 314 x10^3/uL (130-400); RED CELL DISTRIBUTION WIDTH 14.3 % (9.4-14.8)
[2018-11-13 06:05] LABS: CHLORIDE 120 mmol/L (98-107)
[2018-11-13 06:11] LABS: ALANINE AMINOTRANSFERASE 70 U/L (12-78); ALBUMIN 2.5 g/dL (3.4-5.0); ALKALINE PHOSPHATASE 152 U/L (45-117); ANION GAP 10 mmol/L (5-15); BILIRUBIN,TOTAL 0.6 mg/dL (0.2-1.0); CALCIUM 8.7 mg/dL (8.5-10.1); CREATININE 0.84 mg/dL (0.7-1.3); TOTAL PROTEIN 6.4 g/dL (6.4-8.2)
[2018-11-13] MEDS: LIPASE/PROTEASE/AMYLASE TAB PO SCH ×4 (06:21→23:52)
[2018-11-13] MEDS: METOPROLOL TARTRATE 25 MG TABLET NG SCH ×2 (06:21→16:50)
[2018-11-13] MEDS: DIPHENOXYLATE/ATROPINE ORAL SOL PO SCH ×4 (06:21→22:02)
[2018-11-13 06:53] VITALS: BP 131/84
[2018-11-13] MEDS: LACTOBACILLUS CHEW TABLET NG SCH ×3 (09:19→22:01)
[2018-11-13] MEDS: CHOLESTYRAMINE LIGHT 4GM PACKET PO SCH (09:19)
[2018-11-13] MEDS: RIFAXIMIN 550 MG TABLET PO SCH ×2 (09:20→22:01)
[2018-11-13] MEDS: SODIUM CHLORIDE FLUSH 10ML SYR IVF SCH ×2 (09:20→22:01)
[2018-11-13] MEDS ORDERED: SODIUM CHLORIDE 0.45% 500 ML IV SCH (10:00)
--- NOTE | 2018-11-13 10:25 | NUR ---
REC CHOPPED/NTL; ORANGE SHEET WITH DIET RECOMMENDATION AND SWALLOW STRATEGIES POSTED AT BEDSIDE. Addendum: 11/13/18 at 1026 by Lina ROSSI Amended: Links added.
[2018-11-13 16:18] VITALS: BP 119/86
[2018-11-13 20:56] VITALS: BP 114/80
[2018-11-13] MEDS: ENOXAPARIN 40 MG/0.4 ML SQ SCH (22:02)
[2018-11-14 00:01] VITALS: BP 132/87
[2018-11-14 05:48] LABS: BASOPHILS # (AUTO) 0.03 x10^3/uL (0-0.1); BASOPHILS % (AUTO) 0 % (0-1); EOSINOPHILS # (AUTO) 0.39 x10^3/uL (0-0.4); EOSINOPHILS % (AUTO) 5 % (1-7); LYMPHOCYTES # (AUTO) 1.59 x10^3/uL (1-3.4); LYMPHOCYTES % (AUTO) 21 % (22-44); MD NO; MEAN CORPUSCULAR HEMOGLOBIN 31.2 pg (27.5-34.5); MEAN CORPUSCULAR VOLUME 97.3 fL (81-97); MONOCYTES # (AUTO) 0.72 x10^3/uL (0.2-0.8); MONOCYTES % (AUTO) 10 % (2-9); NEUTROPHILS # (AUTO) 4.71 x10^3/uL (1.8-6.8); NEUTROPHILS % (AUTO) 63 % (42-75); PLATELET COUNT 283 x10^3/uL (130-400); RED BLOOD COUNT 4.02 x10^6/uL (4.38-5.82); RED CELL DISTRIBUTION WIDTH 14.6 % (9.4-14.8)
[2018-11-14 05:59] LABS: ALBUMIN 2.5 g/dL (3.4-5.0); ANION GAP 8 mmol/L (5-15); CALCIUM 8.8 mg/dL (8.5-10.1); CHLORIDE 121 mmol/L (98-107)
[2018-11-14 06:03] LABS: ALANINE AMINOTRANSFERASE 62 U/L (12-78); ALKALINE PHOSPHATASE 146 U/L (45-117); CREATININE 0.78 mg/dL (0.7-1.3); TOTAL PROTEIN 6.1 g/dL (6.4-8.2)
[2018-11-14] MEDS: DIPHENOXYLATE/ATROPINE ORAL SOL PO SCH ×4 (06:31→21:32)
[2018-11-14] MEDS: LIPASE/PROTEASE/AMYLASE TAB PO SCH ×4 (06:31→23:21)
[2018-11-14] MEDS: METOPROLOL TARTRATE 25 MG TABLET NG SCH ×2 (06:31→16:33)
[2018-11-14] MEDS: SODIUM CHLORIDE FLUSH 10ML SYR IVF SCH ×2 (07:28→21:00)
[2018-11-14 08:00] VITALS: BP 120/82
[2018-11-14] MEDS: RIFAXIMIN 550 MG TABLET PO SCH ×2 (10:05→21:32)
[2018-11-14] MEDS: CHOLESTYRAMINE LIGHT 4GM PACKET PO SCH (10:05)
[2018-11-14] MEDS: LACTOBACILLUS CHEW TABLET NG SCH ×3 (10:06→21:32)
[2018-11-14] MEDS: THIAMINE 200 MG in SODIUM CHLORIDE 0.9% 50 ML IV SCH ×3 (11:07→21:30)
[2018-11-14 12:44] VITALS: BP 113/81
[2018-11-14 15:09] LABS: ANION GAP 10 mmol/L (5-15); CALCIUM 8.4 mg/dL (8.5-10.1); CHLORIDE 121 mmol/L (98-107); CREATININE 0.76 mg/dL (0.7-1.3)
[2018-11-14 18:37] VITALS: BP 147/87
[2018-11-14] MEDS: ENOXAPARIN 40 MG/0.4 ML SQ SCH (21:32)
[2018-11-15 00:24] VITALS: BP 136/96
[2018-11-15] MEDS: METOPROLOL TARTRATE 25 MG TABLET NG SCH ×2 (05:53→18:43)
[2018-11-15] MEDS: DIPHENOXYLATE/ATROPINE ORAL SOL PO SCH ×4 (05:53→23:16)
[2018-11-15] MEDS: LIPASE/PROTEASE/AMYLASE TAB PO SCH ×4 (05:53→23:19)
[2018-11-15 07:58] VITALS: BP 116/81
[2018-11-15] MEDS: SODIUM CHLORIDE FLUSH 10ML SYR IVF SCH ×2 (09:00→23:17)
[2018-11-15 09:34] LABS: CHLORIDE 122 mmol/L (98-107)
[2018-11-15 09:40] LABS: ALANINE AMINOTRANSFERASE 60 U/L (12-78); ALBUMIN 2.8 g/dL (3.4-5.0); ALKALINE PHOSPHATASE 156 U/L (45-117); ANION GAP 9 mmol/L (5-15); BILIRUBIN,TOTAL 0.8 mg/dL (0.2-1.0); CREATININE 0.83 mg/dL (0.7-1.3); TOTAL PROTEIN 6.5 g/dL (6.4-8.2)
[2018-11-15] MEDS: LACTOBACILLUS CHEW TABLET NG SCH ×3 (10:21→23:16)
[2018-11-15] MEDS: THIAMINE 200 MG in SODIUM CHLORIDE 0.9% 50 ML IV SCH ×3 (10:21→23:13)
[2018-11-15] MEDS: RIFAXIMIN 550 MG TABLET PO SCH ×2 (10:21→23:16)
[2018-11-15 12:54] VITALS: BP 114/80
[2018-11-15] MEDS: CHOLESTYRAMINE LIGHT 4GM PACKET PO SCH (15:56)
[2018-11-15 19:10] VITALS: BP 115/84
[2018-11-15] MEDS: DEXTROSE 5% 1,000 ML IV SCH (23:13)
[2018-11-15] MEDS: ENOXAPARIN 40 MG/0.4 ML SQ SCH (23:15)
[2018-11-16] VITALS (7 sets, daily range): BP systolic 110–122; BP diastolic 74–83
[2018-11-16 05:31] LABS: ALBUMIN 2.5 g/dL (3.4-5.0); ANION GAP 8 mmol/L (5-15); CALCIUM 8.7 mg/dL (8.5-10.1); CHLORIDE 122 mmol/L (98-107)
[2018-11-16 05:34] LABS: ALANINE AMINOTRANSFERASE 48 U/L (12-78); ALKALINE PHOSPHATASE 143 U/L (45-117); BILIRUBIN,TOTAL 0.8 mg/dL (0.2-1.0); CREATININE 0.65 mg/dL (0.7-1.3); TOTAL PROTEIN 5.9 g/dL (6.4-8.2)
[2018-11-16] MEDS: DIPHENOXYLATE/ATROPINE ORAL SOL PO SCH ×4 (06:19→21:15)
[2018-11-16] MEDS: LIPASE/PROTEASE/AMYLASE TAB PO SCH ×4 (06:19→23:12)
[2018-11-16] MEDS: METOPROLOL TARTRATE 25 MG TABLET NG SCH ×2 (06:19→18:01)
[2018-11-16] MEDS: CHOLESTYRAMINE LIGHT 4GM PACKET PO SCH (09:07)
[2018-11-16] MEDS: SODIUM CHLORIDE FLUSH 10ML SYR IVF SCH ×2 (09:07→21:16)
[2018-11-16] MEDS: RIFAXIMIN 550 MG TABLET PO SCH ×2 (09:07→21:15)
[2018-11-16] MEDS: THIAMINE 200 MG in SODIUM CHLORIDE 0.9% 50 ML IV SCH (09:07)
[2018-11-16] MEDS: LACTOBACILLUS CHEW TABLET NG SCH ×3 (09:07→21:15)
[2018-11-16] MEDS: DEXTROSE 5% 1,000 ML IV SCH (12:54)
[2018-11-16 14:30] LABS: ANION GAP 11 mmol/L (5-15); CALCIUM 8.4 mg/dL (8.5-10.1); CHLORIDE 118 mmol/L (98-107); CREATININE 0.89 mg/dL (0.7-1.3)
[2018-11-16] MEDS: ENOXAPARIN 40 MG/0.4 ML SQ SCH (21:15)
[2018-11-17 01:12] VITALS: BP 107/73
[2018-11-17] MEDS: DEXTROSE 5% 1,000 ML IV SCH ×2 (01:15→08:51)
[2018-11-17 05:40] LABS: ALBUMIN 2.3 g/dL (3.4-5.0); ANION GAP 10 mmol/L (5-15); CALCIUM 8.2 mg/dL (8.5-10.1); CHLORIDE 114 mmol/L (98-107)
[2018-11-17 05:43] VITALS: BP 109/76
[2018-11-17] MEDS: LIPASE/PROTEASE/AMYLASE TAB PO SCH ×4 (05:43→20:53)
[2018-11-17] MEDS: DIPHENOXYLATE/ATROPINE ORAL SOL PO SCH ×4 (05:43→20:54)
[2018-11-17] MEDS: METOPROLOL TARTRATE 25 MG TABLET NG SCH ×2 (05:43→17:46)
[2018-11-17 05:45] LABS: ALANINE AMINOTRANSFERASE 44 U/L (12-78); ALKALINE PHOSPHATASE 114 U/L (45-117); BILIRUBIN,TOTAL 0.5 mg/dL (0.2-1.0); CREATININE 0.68 mg/dL (0.7-1.3); TOTAL PROTEIN 5.4 g/dL (6.4-8.2)
[2018-11-17 07:53] VITALS: BP 112/78
[2018-11-17] MEDS: CHOLESTYRAMINE LIGHT 4GM PACKET PO SCH (08:46)
[2018-11-17] MEDS: RIFAXIMIN 550 MG TABLET PO SCH ×2 (08:46→20:54)
[2018-11-17] MEDS: LACTOBACILLUS CHEW TABLET NG SCH ×3 (08:46→20:53)
[2018-11-17] MEDS: SODIUM CHLORIDE FLUSH 10ML SYR IVF SCH ×2 (09:00→20:55)
[2018-11-17 13:18] VITALS: BP 116/72
--- NOTE | 2018-11-17 13:55 | NUR ---
REG/ NTL Addendum: 11/17/18 at [address] Amended: Links added.
[2018-11-17 19:25] VITALS: BP 107/73
[2018-11-17] MEDS: ENOXAPARIN 40 MG/0.4 ML SQ SCH (20:54)
[2018-11-18 01:10] VITALS: BP 101/68
[2018-11-18 04:43] LABS: BASOPHILS # (AUTO) 0.02 x10^3/uL (0-0.1); BASOPHILS % (AUTO) 0 % (0-1); EOSINOPHILS # (AUTO) 0.33 x10^3/uL (0-0.4); EOSINOPHILS % (AUTO) 5 % (1-7); LYMPHOCYTES # (AUTO) 1.95 x10^3/uL (1-3.4); LYMPHOCYTES % (AUTO) 30 % (22-44); MD NO; MEAN CORPUSCULAR HEMOGLOBIN 31.4 pg (27.5-34.5); MEAN CORPUSCULAR HGB CONC 32.6 g/dL (33.2-36.2); MEAN CORPUSCULAR VOLUME 96.3 fL (81-97); MEAN PLATELET VOLUME 8.7 fL (7.4-10.4); MONOCYTES # (AUTO) 0.73 x10^3/uL (0.2-0.8); MONOCYTES % (AUTO) 11 % (2-9); NEUTROPHILS # (AUTO) 3.53 x10^3/uL (1.8-6.8); NEUTROPHILS % (AUTO) 54 % (42-75); PLATELET COUNT 231 x10^3/uL (130-400); RED BLOOD COUNT 3.79 x10^6/uL (4.38-5.82); RED CELL DISTRIBUTION WIDTH 13.7 % (9.4-14.8)
[2018-11-18 04:49] LABS: ANION GAP 10 mmol/L (5-15); CHLORIDE 113 mmol/L (98-107); CREATININE 0.63 mg/dL (0.7-1.3)
[2018-11-18] MEDS: METOPROLOL TARTRATE 25 MG TABLET NG SCH ×2 (05:38→17:08)
[2018-11-18] MEDS: LIPASE/PROTEASE/AMYLASE TAB PO SCH ×4 (05:39→22:17)
[2018-11-18] MEDS: DIPHENOXYLATE/ATROPINE ORAL SOL PO SCH ×4 (05:39→22:17)
[2018-11-18 07:13] VITALS: BP 108/72
[2018-11-18] MEDS: SODIUM CHLORIDE FLUSH 10ML SYR IVF SCH ×2 (09:00→21:00)
[2018-11-18 09:36] LABS: ALANINE AMINOTRANSFERASE 47 U/L (12-78); ALBUMIN 2.4 g/dL (3.4-5.0)
[2018-11-18 09:38] LABS: ALKALINE PHOSPHATASE 131 U/L (45-117); BILIRUBIN,TOTAL 0.7 mg/dL (0.2-1.0); TOTAL PROTEIN 5.5 g/dL (6.4-8.2)
[2018-11-18] MEDS: LACTOBACILLUS CHEW TABLET NG SCH ×3 (09:53→22:17)
[2018-11-18] MEDS: RIFAXIMIN 550 MG TABLET PO SCH ×2 (09:53→22:17)
[2018-11-18] MEDS: CHOLESTYRAMINE LIGHT 4GM PACKET PO SCH (09:54)
[2018-11-18] MEDS: POTASSIUM CHLORIDE 20 MEQ TAB.ER.PRT PO SCH (09:57)
[2018-11-18 12:27] VITALS: BP 110/69
[2018-11-18 19:34] VITALS: BP 116/76
[2018-11-18] MEDS: ENOXAPARIN 40 MG/0.4 ML SQ SCH (21:00)
[2018-11-19 02:10] VITALS: BP 115/76
[2018-11-19] MEDS ORDERED: CALCIUM CARBONATE 500 MG TAB.CHEW PO PRN (05:30)
[2018-11-19] MEDS: LIPASE/PROTEASE/AMYLASE TAB PO SCH ×2 (05:43→11:36)
[2018-11-19] MEDS: DIPHENOXYLATE/ATROPINE ORAL SOL PO SCH ×2 (05:43→11:36)
[2018-11-19] MEDS: METOPROLOL TARTRATE 25 MG TABLET NG SCH (05:43)
[2018-11-19 08:35] VITALS: BP 109/72
[2018-11-19] MEDS: LACTOBACILLUS CHEW TABLET NG SCH (08:41)
[2018-11-19] MEDS: RIFAXIMIN 550 MG TABLET PO SCH (08:41)
[2018-11-19] MEDS: SODIUM CHLORIDE FLUSH 10ML SYR IVF SCH (08:41)
[2018-11-19] MEDS: POTASSIUM CHLORIDE 20 MEQ TAB.ER.PRT PO SCH (08:41)
[2018-11-19] MEDS: CHOLESTYRAMINE LIGHT 4GM PACKET PO SCH (08:41)
--- NOTE | 2018-11-19 11:07 | NUR ---
REC REGULAR/THIN; ORANGE SHEET WITH DIET RECOMMENDATIONS AND SWALLOW STRATEGIES POSTED AT BEDSIDE. Addendum: 11/19/18 at 1108 by Lina ROSSI Amended: Links added.
[2018-11-19] MEDS ORDERED: LIPA1TAB3 PO (11:33)
[2018-11-19] MEDS ORDERED: POTA20TA6 PO (11:33)
[2018-11-19] MEDS ORDERED: ACID1TAB7 NG (11:33)
[2018-11-19] MEDS ORDERED: CHOL239. PO (11:33)
[2018-11-19] MEDS ORDERED: METO25TA35 NG (11:33)
[2018-11-19] MEDS ORDERED: RIFA550T4 PO (11:33)
[2018-11-19] MEDS ORDERED: THIA100T67 PO (11:34)
[2018-11-19] MEDS ORDERED: MULT-500 PO (11:39)
[2018-11-19 14:40] VITALS: BP 108/71
== END 2018-11-19 14:58 | disposition home health service (06) | DRG 870 ==
LOC: ED 15:20 → EDIP 15:26 → ED 15:39 → 4WST 16:33 → CCU 10-08 12:20 → 5SO 11-04 15:00 → 3NW 11-07 18:07 → 3NE 11-09 19:48
PROVIDERS: ADMIT Internal Medicine; ATTEND Internal Medicine
PROC: 0W9G3ZZ Drainage of Peritoneal Cavity, Percutaneous Approach (ICD-10-PCS; 2018-10-07)
PROC: 0BH17EZ Insertion of Endotracheal Airway into Trachea, Via Natural or Artificial Opening (ICD-10-PCS; 2018-10-10)
PROC: 5A1945Z Respiratory Ventilation, 24-96 Consecutive Hours (ICD-10-PCS; 2018-10-10)
PROC: 0BP1XDZ Removal of Intraluminal Device from Trachea, External Approach (ICD-10-PCS; 2018-10-13)
PROC: 0D9670Z Drainage of Stomach with Drainage Device, Via Natural or Artificial Opening (ICD-10-PCS; 2018-10-15)
PROC: 5A1955Z Respiratory Ventilation, Greater than 96 Consecutive Hours (ICD-10-PCS; principal; 2018-10-22)
PROC: 0B9B8ZZ Drainage of Left Lower Lobe Bronchus, Via Natural or Artificial Opening Endoscopic (ICD-10-PCS; 2018-10-22)
PROC: 0B948ZZ Drainage of Right Upper Lobe Bronchus, Via Natural or Artificial Opening Endoscopic (ICD-10-PCS; 2018-10-22)
PROC: 0B988ZZ Drainage of Left Upper Lobe Bronchus, Via Natural or Artificial Opening Endoscopic (ICD-10-PCS; 2018-10-22)
PROC: 0B958ZZ Drainage of Right Middle Lobe Bronchus, Via Natural or Artificial Opening Endoscopic (ICD-10-PCS; 2018-10-22)
PROC: 0B938ZZ Drainage of Right Main Bronchus, Via Natural or Artificial Opening Endoscopic (ICD-10-PCS; 2018-10-22)
PROC: 0B978ZZ Drainage of Left Main Bronchus, Via Natural or Artificial Opening Endoscopic (ICD-10-PCS; 2018-10-22)
PROC: 0B968ZZ Drainage of Right Lower Lobe Bronchus, Via Natural or Artificial Opening Endoscopic (ICD-10-PCS; 2018-10-22)
PROC: 0B998ZZ Drainage of Lingula Bronchus, Via Natural or Artificial Opening Endoscopic (ICD-10-PCS; 2018-10-22)
PROC: 0BH17EZ Insertion of Endotracheal Airway into Trachea, Via Natural or Artificial Opening (ICD-10-PCS; 2018-10-22)
PROC: 0W9G3ZZ Drainage of Peritoneal Cavity, Percutaneous Approach (ICD-10-PCS; 2018-10-22)
PROC: 02HV33Z Insertion of Infusion Device into Superior Vena Cava, Percutaneous Approach (ICD-10-PCS; 2018-10-22)
PROC: B548ZZA Ultrasonography of Superior Vena Cava, Guidance (ICD-10-PCS; 2018-10-22)
PROC: 0T9B70Z Drainage of Bladder with Drainage Device, Via Natural or Artificial Opening (ICD-10-PCS; 2018-10-22)
PROC: 0W9G3ZZ Drainage of Peritoneal Cavity, Percutaneous Approach (ICD-10-PCS; 2018-10-31)
DX: A41.4 Sepsis due to anaerobes (principal); G93.41 Metabolic encephalopathy; J69.0 Pneumonitis due to inhalation of food and vomit; J96.01 Acute respiratory failure with hypoxia; K65.1 Peritoneal abscess; K85.90 Acute pancreatitis without necrosis or infection, unspecified; A04.72 Enterocolitis due to Clostridium difficile, not specified as recurrent; E46 Unspecified protein-calorie malnutrition; E51.2 Wernicke's encephalopathy; E87.0 Hyperosmolality and hypernatremia; E87.1 Hypo-osmolality and hyponatremia; F10.231 Alcohol dependence with withdrawal delirium; J91.8 Pleural effusion in other conditions classified elsewhere; J98.11 Atelectasis; K56.7 Ileus, unspecified; K76.6 Portal hypertension; K86.3 Pseudocyst of pancreas; R44.3 Hallucinations, unspecified; Z99.11 Dependence on respirator [ventilator] status; D53.9 Nutritional anemia, unspecified; D63.8 Anemia in other chronic diseases classified elsewhere; K70.31 Alcoholic cirrhosis of liver with ascites; E83.39 Other disorders of phosphorus metabolism; E86.0 Dehydration; E86.1 Hypovolemia; E87.6 Hypokalemia; I11.9 Hypertensive heart disease without heart failure; K21.9 Gastro-esophageal reflux disease without esophagitis; K57.30 Diverticulosis of large intestine without perforation or abscess without bleeding; K70.40 Alcoholic hepatic failure without coma; K82.8 Other specified diseases of gallbladder; Z51.5 Encounter for palliative care; F41.9 Anxiety disorder, unspecified; Z68.20 Body mass index [BMI] 20.0-20.9, adult
CPT/HCPCS: 36415; 36600; 74018; 74230; 74340; 76000; 82042; 82945; 83986; 84145; 87046; 87427; 87806; 99285; J3370; J3475; J3490; J7042; J7613; J7620; 31624; 36573; 49083; 71045; 71260; 74176; 74177; 74178; 76700; 80048; 80053; 80061; 81001; 81003; 82105; 82140; 82150; 82274; 82533; 82570; 82607; 82803; 82962; 83605; 83615; 83690; 83735; 83880; 83935; 84100; 84134; 84157; 84300; 84443; 84478; 84484; 85025; 85027; 85610; 85730; 87015; 87040; 87070; 87075; 87081; 87086; 87102; 87116; 87205; 87206; 87252; 87324; 87328; 87329; 87493; 88112; 88305; 89051; 93005; 93970; 94002; 94003; 94150; 94640; 94667; 94668; 96374; G0378; J0610; J1644; J1650; J1815; J1940; J2185; J2250; J2354; J2543; J2560; J2704; J3010; J3360; J3411; J3480; J3486; J7070; P9047; Q9967; C1751; C1769; C9113; G0475; J1120; J1630; J1720; J2060; J2270; J2765; J3420; J7030; J7040; J7050